=== PATIENT | female | born 1995 | race African-American/Black ===

== ENCOUNTER → 2024-02-06 12:40 | Outpatient (CLI) | payer OTHER, SELFPAY ==
--- NOTE | 2024-02-06 12:43 | DI.CT.S_ITS ---
PROCEDURE: CT LUMBAR SPINE WO CON INDICATIONS: spinal stenosis TECHNIQUE: Noncontrast 3 mm thick sections acquired from the T12 level to the sacrum. Sagittal and coronal reformats were constructed. For radiation dose reduction, the following was used: automated exposure control. COMPARISON: [facility] [place], RF, LUMBAR TRANSFORAMINAL REJI, 01/01/2024, 12:49. [facility] Outside Film, MR, MR LUMBAR SPINE WITHOUT CONTRAST, 09/21/2023, 12:49. [facility] Outside Film, CT, CT LUMBAR SPINE WITHOUT CONTRAST, 11/06/2023, 10:38. FINDINGS: Image quality: Excellent. Bones: There is normal bony alignment. No acute vertebral body compression fractures. No suspicious lytic or blastic bony lesions. No pars defects. T12-L1: Normal appearance. L1-L2: Normal appearance. L2-L3: Normal appearance. L3-L4: Normal appearance. L4-L5: Suggestion of mild broad-based disc bulge with [id number]-[id number] left-sided neural foraminal narrowing and mild right-sided neural foraminal narrowing. No significant central canal stenosis. L5-S1: Diffuse disc bulge is seen with mild central canal stenosis, no significant neural foraminal narrowing. Soft tissues: No retroperitoneal masses or hematomas. Visualized aorta is normal in caliber. IMPRESSION: 1. Mild broad-based disc bulge at L4-5 and L5-S1 levels causing mild to moderate left-sided neural foraminal narrowing and mild right-sided neural foraminal narrowing at L4-5 level. No significant canal stenosis or neural foraminal narrowing is seen in rest of the lumbar spine. 2. No acute vertebral body compression fracture or spondylolisthesis. No gross paraspinous soft tissue abnormalities. Dictated by: Surinder Acevedo M.D. on 02/06/2024 at 20:34 Approved by: Surinder Acevedo M.D. on 02/06/2024 at 20:37
== END ==
PROVIDERS: PCP Nurse Practitioner Family
DX: M48.062 Spinal stenosis, lumbar region with neurogenic claudication (principal); M51.369 Other intervertebral disc degeneration, lumbar region without mention of lumbar back pain or lower extremity pain; M51.379 Other intervertebral disc degeneration, lumbosacral region without mention of lumbar back pain or lower extremity pain
CPT/HCPCS: 72131

== ENCOUNTER 2024-03-02 15:38 | Inpatient (IN) | payer OTHER, SELFPAY ==
[2024-02-19 08:07] VITALS: BMI 33.5
[2024-03-02] VITALS (18 sets, daily range): BP systolic 117–132; BP diastolic 63–86; PULSE 81–101; RESP 10–21; TEMP 36–36.5; O2SAT 9–100; BMI 33.5; BMI 34.7
[2024-03-02] MEDS: SCOPOLAMINE 1 PATCH TOP (10:08)
[2024-03-02] MEDS: LACTATED RINGERS 1,000 ML 42 ML IV (10:08)
[2024-03-02] MEDS: ACETAMINOPHEN 325 MG TABLET 975 MG PO (10:10)
--- NOTE | 2024-03-02 10:12 | PM.PREOP ---
Pre-operative Note Interval Note History & Physical reviewed/Exam performed by Physician: Yes Changes to H&P: No
[2024-03-02] MEDS: CEFAZOLIN 2 GM/100 ML PREMIX 100 ML IV ×2 (10:49→19:06)
--- NOTE | 2024-03-02 11:23 | SUR.OPER ---
Prone on spine table, head in foam head support, padded chest and pelvic supports, gel pad at knees, lower legs supported by pillows; nipples, genitalia and toes free of pressure, arms secured on foam padded arm boards at <90 degrees abduction. Tape over blanket at thigh secured to table.
[2024-03-02] MEDS: BUPIVACAINE 0.25% (PF) 60 ML, EPINEPHrine 0.15 MG INJ (11:35)
[2024-03-02] MEDS: BUPIVACAINE LIPOSOME 266 MG/20 ML VIAL INJ (11:35)
--- NOTE | 2024-03-02 13:03 | DI.RAD.S_ITS ---
PROCEDURE: XR LUMBAR SPINE 2-3V INDICATIONS: L5-S1 TLIF WITH ROBOT TECHNIQUE: 2 intraoperative fluoroscopic views of the lumbar spine were acquired. COMPARISON: None. FINDINGS: Intraoperative fluoroscopic images of lower lumbar spine shows posterior fusion at L5-S1 level with surgical hardware in place. IMPRESSION: Fluoro guidance was provided intraoperatively for L5-S1 TLIF performed by ordering physician. Dictated by: Surinder Acevedo M.D. on 03/02/2024 at 13:47 Approved by: Surinder Acevedo M.D. on 03/02/2024 at 13:48
--- NOTE | 2024-03-02 13:21 | P.OP_ITS ---
Operative Date/Time/Diagnoses Date of procedure: 03/02/24 Time of procedure: 11:00 Pre-op diagnosis: 1. L5 pars defect 2. Lumbar foraminal stenosis Post-op diagnosis: same Procedure & Clinicians Procedure: 1. L5-S1 Postero-lateral and posterior interbody fusion 2. L5-S1 interbody cage placement. 3. L5-S1 decompressive laminectomy with bilateral facetecomies 4. L5-S1 Posterior non-segmental instrumentation 5. [place] of bone marrow from iliac crest 6. Utilization of microsurgical technique and operating microscope 7. Utilization of robotic assisted navigation Same procedure as scheduled: Yes Indications: Patient has been having chronic back pain and worsening lumbar radiculopathy. Patient was found to have L5 pars defect and foraminal stenosis correlating with her symptoms. Patient failed multiple conservative management with worsening pain weakness and numbness in her lower extremity. Patient has been having difficulty performing activity of daily living. After discussing risks benefits of treatment options, patient elected proceed with surgery. Surgeon: Rosalie Hedrick [employer] Worker: Calista Bradford Click Yes if Unassisted: No Anesthesia Type: General Operative Notes Closure Type: primary Specimen(s): none sent Prosthetic devices, grafts, tissues, transplants, or devices: Globus CREO MIS screws, Rise cage Estimated Blood Loss (mL): 50 Blood products transfused: none Procedure in detail: Patient was seen in the preoperative area. Risks and benefits of the surgery was discussed with the patient. Informed consent was obtained from the patient and placed in the chart. Surgical site was marked. Patient was taken to the operative room. General anesthesia was administered. Prophylactic antibiotic was given to the patient less than 30 min before the incision was made. Patient was placed into a prone position on the Jose table. Patient's back was then prepped and draped in the sterile fashion. Time-out was performed at this time. After patient was prepped and draped, patient's PSIS was palpated and marked bilaterally. Small 1 cm incision was made over the PSIS for placement of the reference probes. Two trocar was placed into the PSIS 1 on each side. The reference probe was attached to the trocar of the reference apparatus. At this time the C-arm imaging was used to confirm AP and lateral of L5-S1 vertebrae and merged the C-arm imaging using the [employer] robotic navigation system with the CT of the lumbar spine. After successful merging was completed and confirmed, skin marker was used to yuki out the skin incision using the [employer] robotic arm. Bilateral incision was made at this time. Pre templated trajectory was used and guided using the [employer] robotic navigation system for bilateral L5-S1 pedicle screw placement. This was done by using the robotic arm to guide the high-speed bur to make a cortical entry point. Next a drill was placed also using the robotic arm and guided using the navigation system drilling partially through bilateral L5, S1 pedicles. Next L5-S1 pedicle screws it was pre templated and measured was placed onto the power cat driver and inserted into the pedicles bilaterally. After all 4 screws were placed C-arm imaging was taken of both AP and lateral to confirm the placement. Excellent placement of the screws were confirmed and a matched precisely with the pre planned screw placement using the navigation system. MARs retractor was inserted using Ezuza guidence. [employer] MARS retractors was placed inside the incision and docked onto the L5 lamina. Using microsurgical technique and operating microscope, a L5 laminectomy and L5-S1 facetectomy was performed using a Kerrison rongeur. Patient was found to have L5 pars defect with visible dynamic instability upon inspection of the L5-S1 segment. Patient was found have severe lateral recess and neural foramen stenosis which was fully decompressed after the laminectomy facetectomy. The laminectomy and facetectomy was performed in order to decompress patient's cauda equina as well as the nerve roots exiting at the L5-S1 level. More than 75% of the facets were removed during the process of decompression rendering L5-S1 level grossly unstable and required a fusion procedure at the same time. The disc space at L5-S1 was identified, and a total diskectomy was performed at L5- S1 level. The endplates were decorticated using a rasp and shaver. The total diskectomy and decortication was performed at L5-S1 level in order to to accomplish a L5-S1 fusion. The local bone from the laminectomy and facetectomy was saved for local bone grafting. After the total diskectomy and decortication was completed, Viacel bone graft material was combined with local bone that was harvested earlier. At this time, a separate skin is incision was made over the iliac crest. A Jamshidi needle was inserted into the iliac crest through a separate skin incision. 5 cc of bone marrow aspiration was obtained through the separate skin incision using a Jamshidi needle from the iliac crest. The bone marrow aspiration was combined with local bone and the Viacel bone grafting material. The bone grafting material was placed into the L5-S1 interbody space along with a expandable cage. The cage was expanded to its maximum height using the torque limiting screwdriver. The disc preparation as well as the cage insertion were also performed under navigation guidance. After the cage was placed, AP and lateral C-arm imaging was taken to confirm placement of the cage and excellent position was confirmed. Globus MARS retractor was inserted and docked onto the L5-S1 posterolateral gutter on the right side. Using the power drill, posterior-lateral decortication was performed at L5-S1 level until bleeding cortical bone was identified. The remaining bone grafting material was placed into the L5-S1 posterior lateral gutter he order to accomplish posterolateral fusion at the L5- S1 level. At this time the tulips were attached to the L5-S1 pedicle screw shanks. After measuring the length of the rods, they were inserted into the tulips of the pedicle screws and locked in place using locking caps and torque limiting screwdriver bilaterally. Total 4 caps and 2 titanium rods was used in order to complete the posterior instrumentation construct. After all the hardware was placed, and confirmed with AP and lateral C-arm imaging, the wound was then irrigated with sterile normal saline and packed with Ray-Britney gauze for 3 min to accomplish hemostasis. After the gauze was removed the deep fascia was closed with #1 Vicryl suture. The subcutaneous layer was closed with 2-0 Vicryl. The skin was closed with skin rodger. Patient tolerated the procedure well. There were no complications. Neuro monitoring system was used to monitor patient's neurologic status throughout entire procedure. There was no disturbance of the neural monitoring signals throughout the case. The Operation could not have been safely performed without compromising the technical result or length of the procedure, without the assistance of a skilled social and human services assistant. The social and human services assistant was medically necessary for proper positioning, retraction and manipulation of instruments, proper exposure, jayda gical preparation, and manipulation of tissue. Complications: none Post-operative Condition: stable Disposition: PACU Plan for aftercare: Admit to inpatient hospital
[2024-03-02] MEDS: HYDROMORPHONE 1 MG INJ IV ×2 (14:01→14:13)
[2024-03-02] MEDS: OXYCODONE IR 5 MG TABLET PO ×2 (14:02→20:01)
[2024-03-02] MEDS: ONDANSETRON 4 MG/2 ML INJ IV ×2 (14:02→20:02)
[2024-03-02] MEDS: hydrOXYzine 50 MG/ML INJ 25 MG IM (14:13)
--- NOTE | 2024-03-02 14:41 | SUR.PHASEI ---
1430Pt.c/o severe pain 11/08
[2024-03-02] MEDS: MIDAZOLAM 2 MG/2 ML VIAL 1 MG IV (14:55)
[2024-03-02] MEDS: LORazepam 2 MG/ML INJ IV ×2 (15:01→15:10)
[2024-03-02 15:02] LABS: Allen Test for ABG Passed? Positive; Blood Gas Collection Site Left Radial; HCO3 ABG 23 mmol/L (23-27); Oxygen Saturation ABG 94 % (95-100); PCO2 ABG 44.3 mmHg (35-45); PO2 ABG 75 mmHg (80-100); TCO2 ABG 23 mmol/L (23-27); pH ABG 7.32 (7.35-7.45)
[2024-03-02] MEDS: levETIRAcetam 1,000 MG in SODIUM CHLORIDE 0.9% 100 ML 440 MG IV ×2 (15:02→20:20)
[2024-03-02] MEDS: NALOXONE 0.4 MG/ML VIAL IV (15:23)
--- NOTE | 2024-03-02 15:32 | DI.CT.S_ITS ---
PROCEDURE: CT HEAD/BRAIN WO CON INDICATIONS: seizure s/p spinal surgery TECHNIQUE: Noncontrast 4.5 mm thick angled axial sections acquired from the foramen magnum to the vertex, with coronal and sagittal reformats. For radiation dose reduction, the following was used: automated exposure control, adjustment of mA and/or kV according to patient size. COMPARISON: [facility], CR, XR LUMBAR SPINE 2-3V, 03/02/2024, 11:08. FINDINGS: Image quality: Diagnostic. CSF spaces: Basal cisterns are patent. No extra-axial fluid collections. Ventricles are normal in size and shape. Brain: No midline shift. No intracranial masses or hemorrhage. Lake-white matter interface is normal. Skull and face: Calvarium and visualized facial bones are intact, without suspicious lesions. Sinuses: Visualized sinuses and mastoids are clear. IMPRESSION: Unremarkable noncontrast head CT, without a cause of seizures identified. No acute intracranial hemorrhage is seen. To the limits of this noncontrast study, no findings of intracranial masses or mass effect can be seen. If there is strong clinical suspicion for an acute stroke, please consider a brain MRI for further evaluation, as it is more sensitive (assuming that there is no contraindication to MRI). Dictated by: Harman Avila M.D. on 03/02/2024 at 14:52 Approved by: Harman Avila M.D. on 03/02/2024 at 14:53
[2024-03-02 15:33] LABS: Mean Corpuscular HGB Conc 31.9 % (30-36); Mean Corpuscular Hemoglobin 30.9 PG (26-34); Mean Corpuscular Volume 96.8 fL (80-100); Platelet Count 106 X10^3/uL (150-400); Red Blood Cell Count 1.51 X10^6/uL (4.0-5.2); Red Cell Distribution Width 13.3 % (11.6-14.8)
[2024-03-02 15:35] LABS: Add Manual Diff / Slide Review YES
--- NOTE | 2024-03-02 16:07 | SUR.PHASEI ---
at 1400 pt. crying and stating pain is 9/10 in back. pt transferred to another bed and was drinking ice water. at 1414 pt. had seizure like activity and was unresponsive x [address] open and pt awoke c/o pain and the had periods of seizure like activity and apnea . vital signs remain stable . dr. Valenzuela at bedside and pt cont. to have periods of seizure like activity. dr. Thomason and Dr. Schneider at bedside. pt. medicated. see. mar for specific administration data. see vsfs for specific vitalsign information . labs drawn. report called to ICU. See dr. Valenzuela note . pt. to ct tranferred on monitor with RT, dr. Valenzuela, and rn.
--- NOTE | 2024-03-02 16:15 | PM.HP.1 ---
History of Present Illness History of Present Illness Date Patient Seen: 03/02/24 Time Patient Seen: 16:15 Chief complaint: [place] Intrbody Fus./Laminotomy -Robot Narrative: This is a 28 year old female with PMH of possibly one seizure (though her mother states she has had some seizure like activity multiple times in the past, but never formally diagnosed with seizure), migraine with aura (seeing neurology and on botox for this per mother), who underwent L5-S1 fusion surgery today with Dr. Hedrick of orthopedics. In the PACU, she developed seizure activity. This was witnessed by me. She had initially received 2 mg of midazolam in the PACU before medicine was called for possible seizure activity. When I arrived her head would rock back and to the right, eyes rolled back, and her jaw became very stiff. There was slight extension of her upper extremities as well. This happened once which self abated after about 15 seconds. Then recurred shortly after. She improved / eased after 2 mg of ativan, was given 1g of Keppra IV initially. Had another less prominent episode which again abated after 2 mg of ativan IV a 2nd time. She then became apnic but was more relaxed, improved with narcan. She was transferred to CT which was unremarkable. Labs were diluted (hg 4.7) and are being repeated. She was admitted to the ICU after seizure. Blood gas was non-contributory and blood glucose was unremarkable. Patient able to tell me she is without complaints except for back pain. She denies recent alcohol use, with her last drink being about 2 weeks ago. [facility] Medical History History of COVID-19 HTN (hypertension) Migraine Lumbar pars defect Low back pain Surgical History No history of previous surgery Social History household members: significant other and none Smoking Status: Never smoker alcohol intake: current Meds Home Medications and Allergies Home Medications Medication Instructions Recorded Confirmed Type acetaminophen 500 mg tablet 1,000 mg PO Q6H PRN Pain 02/19/24 02/19/24 History gabapentin 300 mg capsule 300 mg PO BID 02/19/24 02/19/24 History ibuprofen 200 mg tablet 400 mg PO Q6H PRN Pain 02/19/24 02/19/24 History Allergies Allergy/AdvReac Type Severity Reaction Status Date / Time otf Allergy Severe Mouth Verified 03/02/24 09:42 swelling, hives peach Allergy Severe Mouth Verified 03/02/24 09:42 swelling, hives shellfish derived Allergy Severe Throat Verified 03/02/24 09:42 swelling Review of Systems Review of Systems Narrative: All other systems reviewed with the patient and are negative unless otherwise stated. Exam Vital Signs (past 8 hours): - 03/02/24 09:44 03/02/24 13:39 03/02/24 13:45 Temperature 97.5 F L 97.3 F L Pulse Rate 84 101 H 88 Respiratory Rate 12 16 16 Blood Pressure 127/79 132/79 118/70 Pulse Oximetry 98 100 98 Oxygen Delivery Method Room Air Room Air Room Air 03/02/24 13:45 03/02/24 13:54 03/02/24 14:09 Temperature 97.2 F L Pulse Rate 86 93 H 87 Respiratory Rate 16 16 16 Blood Pressure 117/80 126/80 124/77 Pulse Oximetry 98 9 L 99 Oxygen Delivery Method Room Air Room Air Room Air 03/02/24 14:09 Temperature Pulse Rate 93 H Respiratory Rate 16 Blood Pressure 126/86 Pulse Oximetry 98 Oxygen Delivery Method Room Air Oxygen Delivery Method Room Air Narrative Exam Narrative: General:? Patient is well developed and well nourished, in no distress at this time. Slightly lethargic and falls asleep quickly. HEENT:? Normocephalic, atraumatic, extraocular muscles intact, oral pharynx is clear and mucous membranes are dry. No lacterations on her tongue are seen Neck: supple and symmetric, trachea is midline, no cervical adenopathy. Negative for JVD Chest:? Normal AP diameter and contour without kyphoscoliosis, no tachypnea, equal chest rise bilaterally. Lungs:? Shallow respirations but CTA b/l Cardio:?RRR no m/r/g. Abdomen: S NT ND. Musculoskeletal:? Muscle strength and tone are equal within normal limits, no deformity. Extremities: No edema or joint effusions. No cyanosis or clubbing. Skin:? Pale,? Warm to touch,dry and intact without rashes, ulcerations or petechiae.? Neuro:?Moves all extremities, follows commands. Objective Labs 03/02/24 16:15 03/02/24 16:15 Labs: Laboratory Results - last 24 hr 03/02/24 03/02/24 14:58 15:20 WBC 3.0 L RBC 1.51 L Hgb 4.7 L* Hct 14.6 L* MCV 96.8 MCH 30.9 MCHC 31.9 RDW 13.3 Plt Count 106 L Neut % (Auto) Not Reportable Lymph % (Auto) Not Reportable [place] % (Auto) Not Reportable Eos % (Auto) Not Reportable Baso % (Auto) Not Reportable Lymph # (Auto) Not Reportable [place] # (Auto) Not Reportable Baso # (Auto) Not Reportable ABG Sample Site Left radial ABG pH 7.32 L ABG pCO2 44.3 ABG pO2 75 L ABG HCO3 23 ABG Total CO2 23 ABG O2 Saturation 94 L ABG Base Excess -3.0 L Narciso Test Positive Assessment & Plan Assessment & Plan narrative: 1. Seizure - seizure precautions ordered, ativan prn for seizure activity - continue keppra 1g BID for now - call patient's neurologist tomorrow to see if need for ongoing anti-seizure medication - If recurrent seizure consider transfer for neurologist consultation and EEG - likely caused by reduced seizure threshold after anesthesia and spinal surgery. CT head was unremarkable. - patient may be lethargic in post-ictal period. - no obvious evidence of infectious or metabolic etiologies thus far on evaluation. 2. Spinal stenosis s/p lumbar fusion - management per orthopedic service - okay for therapy evaluations tomorrow 3. Chronic low back pain - continue gabapentin - okay for oxycodone. Code: Full, surrogate is patient's mother Marisol - [phone] DVT: SCDs I have utilized all available immediate resources to obtain, update, or review the patient's current medications. Dispo: ICU. Admitted to medicine service, orthopedics consultation appreciated. Will have PT/OT evaluations. Anticipated stay is beyond 2 midnights. Additional history obtained via discussions with anesthesiologist, PACU staff, nursing staff and patient's mother. These discussions contributed to the creation of the above assessment and plan. I have reviewed patient's presenting documentation, labs, and imaging personally. I spent45 minutes providing critical care management this patient. This excludes time spent in performing separately billed procedures. Time-Based Coding :: [TOTAL MINUTES] spent with patient and on the chart (including review of chart, obtaining history, exam, reviewing outside data, placing orders, documenting exam and treatment plan, and counseling patient) on [DATE].
[2024-03-02] MEDS: LACTATED RINGERS 1,000 ML 125 ML IV ×2 (16:28→20:03)
[2024-03-02 16:42] LABS: Hematocrit 14.6 % (36-46); Hemoglobin 4.7 g/dL (12.0-16.0)
[2024-03-02 16:43] LABS: Neutrophils Absolute Manual 2130 /uL (3000-5900); RBC Morphology Normal Morphology; Total Cells Counted 100
[2024-03-02 16:49] LABS: Phosphorous 3.4 mg/dL (2.5-4.5)
[2024-03-02 16:50] LABS: Alanine Aminotransferase 39 IU/L (<35); Albumin 3.8 g/dL (3.5-5.0); Albumin Globulin Ratio 1.2 (1.0-2.8); Alkaline Phosphatase 51 U/L (38-126); Aspartate Aminotransferase 32 IU/L (14-36); BUN Creatinine Ratio 11.8 (6-22); Bilirubin Total 0.8 mg/dL (0.2-1.3); Blood Urea Nitrogen 10 mg/dL (7-17); Calcium 8.6 mg/dL (8.4-10.2); Carbon Dioxide 25 mmol/L (22-32); Chloride 108 mmol/L (98-107); Estimated Glomerular Filt Rate > 60 mL/min (>60); Globulin 3.3 g/dL (1.7-4.1); Glucose 81 mg/dL (70-100); HEMOLYSIS < 15 (0-50); Potassium 3.7 mmol/L (3.4-5.1); Sodium 140 mmol/L (137-145); Total Protein 7.1 g/dL (6.3-8.2)
--- NOTE | 2024-03-02 16:55 | PT-IP ANOTE ---
Pt adm to ICU after back surgery and Hgb is in the 4 range. Hold PT consult today.
[2024-03-02 16:56] LABS: Add Manual Diff / Slide Review NO; Basophils Absolute Auto 0 /uL (0-100); Basophils Percent Auto 0.2 % (0-2); Eosinophils Absolute Auto 100 /uL (0-450); Eosinophils Percent Auto 0.9 % (2-4); INR 1.1 (0.9-1.3); Lymphocytes Absolute Auto 2100 /uL (1100-4500); Lymphocytes Percent Auto 22.4 % (25-40); Mean Corpuscular HGB Conc 32.6 % (30-36); Mean Corpuscular Hemoglobin 29.9 PG (26-34); Mean Corpuscular Volume 91.7 fL (80-100); Monocytes Absolute Auto 600 /uL (0-900); Monocytes Percent Auto 6.4 % (3-14); Neutrophils Absolute Auto 6600 /uL (1500-7000); Neutrophils Percent Auto 70.1 % (50-75); Platelet Count 253 X10^3/uL (150-400); Red Blood Cell Count 4.16 X10^6/uL (4.0-5.2); Red Cell Distribution Width 13.1 % (11.6-14.8); White Blood Cell Count 9.4 X10^3/uL (4.5-11.0)
[2024-03-02 16:57] LABS: Hematocrit 38.1 % (36-46); Hemoglobin 12.4 g/dL (12.0-16.0)
--- NOTE | 2024-03-02 16:57 | OT.IPNOTE ---
Ot eval and treat order received. Chart reviewed and pt admitted to ICU after back sx with H&H 4.7 & 14.6. Will hold OT eval at this time.
[2024-03-02 17:05] LABS: PTT Partial Thromboplastin Tim 35 SECONDS (25.1-36.5)
[2024-03-02 17:06] LABS: Prolactin 75.4 ng/mL (3.0-18.6)
--- NOTE | 2024-03-02 17:18 | P.PN_ITS ---
Subjective Subjective Interval history: I was called to PACU at 14:20 for an unresponsive pt. Pt was postop lumbar surgery. She had complained of back pain and received two doses of 0.5 mg Dilaudid in PACU at appropriate intervals prior to becoming apneic and unresponsive. On arrival, pt was apneic, difficult to mask ventilate, and poorly responsive to jaw thrust. O2 sats were satisfactory, would dip with apnea but bump back to normal when pt responded to stimuli and started breathing. RT was called and responded; she did an ABG, which was normal, and we also checked a glucose level, which was 94. Initially we thought pt was apneic due to opioids received and pinpoint pupils. We treated this with Narcan, small doses to start, but it became clearer with time that she was having seizure-like activity. Her neck would arch back, arms would twitch, and she would become unresponsive and apneic. On occasion, I noted her eyes to roll back, otherwise they would just become glassy and unfocused if pt had them open at the time. Pt did not respond to jaw thrust stimuli at all, but when a mask was placed on her face and air puffed into her face/mouth, she would quickly rouse and tell us I don't want that, take it off. We reviewed all of pt's home meds--gabapentin, Tylenol, and ibuprofen only--and periop meds. Pt had a scopolamine patch on, and I removed that since it can cross the blood-brain barrier. At that point, hospitalist was called, and Dr. Schneider quickly came to PACU. He was able to witness the seizure-like activity and agreed pt was most likely having seizures. Pt would cycle through these seizure-like episodes that would last 10-15 seconds, then resolve quickly, then less than a minute later, another would start. During one of pt's lucid intervals, she responded that she had had only one seizure at the age of 19. Pt received Versed [address] Schneider had witnessed her seizure. Keppra and Ativan 2 mg x 2 doses were then given per his orders. Pt's seizures slowly resolved, but apneic episodes continued. She was treated with another 0.2 mg of Narcan, after having received a total of 0.2 mg in divided doses, and this helped improve respiratory effort. Pt was following commands and DODGE with good strength to Dr. Schneider's testing. Preparations were made to transport pt to ICU. Report was given. Dr. Schneider ordered a head CT to be done on the way to the ICU. I stayed with pt continuously from 14:20 until 15:52 in the ICU, except for a brief trip to the OR to update Dr. Hedrick. After pt was settled in the ICU, I confirmed pt's anesthetic with Caroline pt's [employer]HW[employer] PA[employer]. Pt received TIVA (total IV anesthesia); NO sevoflurane was given, and NO ketamine was given. Pt received Versed 2 mg at the beginning of the case and opioids intraop, fentanyl 100 mcg at the beginning of the case and 100 mcg towards the end. She also received a total of 2 mg of Dilaudid in divided doses. Caroline reported pt was extubated with a RR of 9-10; eyes were open pt was responding to commands but sleepy. Since this was a lumbar spine neuro- monitoring case, I checked with Flavia, the tech, to see if she had noted any seizure-like activity on the neuromonitoring traces. Flavia said she saw nothing unusual intraop, and she reviewed the tracings again and reported she saw nothing resembling seizure activity on her review. Dr. Hedrick contacted pt's grandmother and mother. He learned that pt had had seizure-like activity around the time of the of her 6-year-old child. It is unclear if this is the seizure pt was referring to or a different event. He also learned that pt is under treatment for migraines with an aura of seizure- like activity by her health provider, but she is not on seizure medication. At the time pt was delivered to PACU, she was easily arousable, had not needed physical stimulation to breathe in over ten minutes, and VSS. Dr. Schneider was at bedside and had assumed care. Exam Vital Signs (past 8 hours): - 03/02/24 09:44 03/02/24 13:39 03/02/24 13:44 Temperature 97.5 F L 97.3 F L Pulse Rate 84 101 H 88 Respiratory Rate 12 16 16 Blood Pressure 127/79 132/79 118/70 Pulse Oximetry 98 100 98 Oxygen Delivery Method Room Air Room Air Room Air 03/02/24 13:49 03/02/24 13:54 03/02/24 13:59 Temperature 97.2 F L Pulse Rate 86 93 H 87 Respiratory Rate 16 16 16 Blood Pressure 117/80 126/80 124/77 Pulse Oximetry 98 9 L 99 Oxygen Delivery Method Room Air Room Air Room Air 03/02/24 14:09 03/02/24 14:15 03/02/24 14:20 Temperature Pulse Rate 93 H 94 H 90 Respiratory Rate 16 16 14 Blood Pressure 126/86 124/86 124/84 Pulse Oximetry 98 99 98 Oxygen Delivery Method Room Air Room Air Room Air 03/02/24 14:30 03/02/24 14:40 03/02/24 16:38 Temperature Pulse Rate 84 88 90 Respiratory Rate 16 16 18 Blood Pressure 124/86 126/86 128/85 Pulse Oximetry 100 100 98 Oxygen Delivery Method Room Air Room Air 03/02/24 16:40 Temperature Pulse Rate 88 Respiratory Rate 10 L Blood Pressure Pulse Oximetry Oxygen Delivery Method Oxygen Delivery Method Room Air Objective Labs 03/02/24 16:15 03/02/24 16:15 Labs: Laboratory Results - last 24 hr 03/02/24 03/02/24 03/02/24 14:58 15:20 16:15 WBC 3.0 L 9.4 D RBC 1.51 L 4.16 Hgb 4.7 L* 12.4 Hct 14.6 L* 38.1 MCV 96.8 91.7 D MCH 30.9 29.9 MCHC 31.9 32.6 RDW 13.3 13.1 Plt Count 106 L 253 Neut % (Auto) Not Reportable 70.1 Lymph % (Auto) Not Reportable 22.4 L [place] % (Auto) Not Reportable 6.4 Eos % (Auto) Not Reportable 0.9 L Baso % (Auto) Not Reportable 0.2 Neut # (Auto) 6600 Lymph # (Auto) Not Reportable 2100 [place] # (Auto) Not Reportable 600 Eos # (Auto) 100 Baso # (Auto) Not Reportable 0 Total Counted 100 Seg Neutrophils % 63.0 Band Neutrophils % 8.0 H Lymphocytes % (Manual) 26.0 Monocytes % (Manual) 3.0 Neutrophils # (Manual) 2130 L RBC Morphology Normal morphology PT Cancelled INR APTT ABG Sample Site Left radial ABG pH 7.32 L ABG pCO2 44.3 ABG pO2 75 L ABG HCO3 23 ABG Total CO2 23 ABG O2 Saturation 94 L ABG Base Excess -3.0 L Narciso Test Positive Sodium Potassium Chloride Carbon Dioxide BUN Creatinine Estimated GFR BUN/Creatinine Ratio Glucose Lactate Calcium Phosphorus Magnesium Total Bilirubin AST ALT Alkaline Phosphatase Total Protein Albumin Globulin Albumin/Globulin Ratio Prolactin Blood Type Antibody Screen 03/02/24 03/02/24 16:15 16:15 WBC RBC Hgb Hct MCV MCH MCHC RDW Plt Count Neut % (Auto) Lymph % (Auto) [place] % (Auto) Eos % (Auto) Baso % (Auto) Neut # (Auto) Lymph # (Auto) [place] # (Auto) Eos # (Auto) Baso # (Auto) Total Counted Seg Neutrophils % Band Neutrophils % Lymphocytes % (Manual) Monocytes % (Manual) Neutrophils # (Manual) RBC Morphology PT 12.0 INR Cancelled 1.1 APTT 35 ABG Sample Site ABG pH ABG pCO2 ABG pO2 ABG HCO3 ABG Total CO2 ABG O2 Saturation ABG Base Excess Narciso Test Sodium 140 Potassium 3.7 Chloride 108 H Carbon Dioxide 25 BUN 10 Creatinine 0.85 Estimated GFR > 60 BUN/Creatinine Ratio 11.8 Glucose 81 Lactate 1.0 Calcium 8.6 Phosphorus 3.4 Magnesium 2.0 Total Bilirubin 0.8 AST 32 ALT 39 H Alkaline Phosphatase 51 Total Protein 7.1 Albumin 3.8 Globulin 3.3 Albumin/Globulin Ratio 1.2 Prolactin 75.4 H Blood Type O Positive Antibody Screen Negative ON LICENSE OF [facility] Medical History History of COVID-19 HTN (hypertension) Migraine Lumbar pars defect Low back pain Surgical History No history of previous surgery Social History household members: significant other and none Smoking Status: Never smoker alcohol intake: current Assessment & Plan Time-Based Coding :: [TOTAL MINUTES] spent with patient and on the chart (including review of chart, obtaining history, exam, reviewing outside data, placing orders, documenting exam and treatment plan, and counseling patient) on [DATE].
[2024-03-02] MEDS: ACETAMINOPHEN 325 MG TABLET 650 MG PO ×2 (17:24→23:03)
[2024-03-02] MEDS: IBUPROFEN 400 MG TABLET PO ×2 (17:25→23:02)
[2024-03-02 17:54] LABS: MRSA (Nasal) PCR NOT DETECTED (Not Detect)
[2024-03-02] MEDS: SENNOSIDES 8.6 MG TABLET 17.2 MG PO (21:10)
[2024-03-02] MEDS: DOCUSATE 100 MG CAPSULE PO (21:10)
[2024-03-02] MEDS: GABAPENTIN 300 MG CAPSULE PO (21:10)
[2024-03-02] MEDS: SODIUM CHLORIDE 0.9% FLUSH 10 ML IV (21:11)
[2024-03-03] VITALS: BP 100/55; PULSE 89; RESP 16; TEMP 36.8; O2SAT 95
[2024-03-03] MEDS: ONDANSETRON 4 MG/2 ML INJ IV (02:03)
[2024-03-03] MEDS: CEFAZOLIN 2 GM/100 ML PREMIX 100 ML IV (03:33)
[2024-03-03 04:00] VITALS: BP 103/56; PULSE 85; RESP 16; TEMP 36.2; O2SAT 97
[2024-03-03] MEDS: ACETAMINOPHEN 325 MG TABLET 650 MG PO (06:06)
[2024-03-03] MEDS: IBUPROFEN 400 MG TABLET PO (06:07)
--- NOTE | 2024-03-03 06:45 | PC.NURSE ---
[facility] Note-No seizure activity overnight. Ambulates to BR with SBA. Tylenol, ibuprofen, and 5mg oxycodone given for back pain and headache. Zofran for nausea without emesis. VSS.
--- NOTE | 2024-03-03 07:50 | PM.PNPO.1 ---
Subjective Subjective Date Patient Seen: 03/03/24 Time Patient Seen: 07:50 Interval history: Back pain is [id number]. No fever/ chills. No nausea /vomiting. No seizure activity overnight. Exam Vital Signs (past 8 hours): - 03/03/24 00:00 03/03/24 00:00 03/03/24 00:00 Temperature 98.2 F Pulse Rate 89 Respiratory Rate 16 Blood Pressure 100/55 L Pulse Oximetry 95 Oxygen Delivery Method Room Air Oxygen Flow Rate 0 03/03/24 04:00 Temperature 97.1 F L Pulse Rate 85 Respiratory Rate 16 Blood Pressure 103/56 L Pulse Oximetry 97 Oxygen Delivery Method Oxygen Flow Rate 0 Oxygen Delivery Method Room Air Oxygen Flow Rate 0 Narrative Exam Narrative: Pleasant 28-year-old female resting comfortably in bedside chair in no apparent distress. Neurovascular status is intact bilateral lower extremities. Const General: cooperative and comfortable Nutritional Appearance: average body habitus Orientation: alert Resp Effort & Inspection: normal respiratory effort and able to speak in complete sentences Objective Labs 03/02/24 16:15 03/02/24 16:15 Labs: Laboratory Results - last 24 hr 03/02/24 03/02/24 03/02/24 14:58 15:20 16:00 WBC 3.0 L RBC 1.51 L Hgb 4.7 L* Hct 14.6 L* MCV 96.8 MCH 30.9 MCHC 31.9 RDW 13.3 Plt Count 106 L Neut % (Auto) Not Reportable Lymph % (Auto) Not Reportable [place] % (Auto) Not Reportable Eos % (Auto) Not Reportable Baso % (Auto) Not Reportable Neut # (Auto) Lymph # (Auto) Not Reportable [place] # (Auto) Not Reportable Eos # (Auto) Baso # (Auto) Not Reportable Total Counted 100 Seg Neutrophils % 63.0 Band Neutrophils % 8.0 H Lymphocytes % (Manual) 26.0 Monocytes % (Manual) 3.0 Neutrophils # (Manual) 2130 L RBC Morphology Normal morphology PT INR APTT ABG Sample Site Left radial ABG pH 7.32 L ABG pCO2 44.3 ABG pO2 75 L ABG HCO3 23 ABG Total CO2 23 ABG O2 Saturation 94 L ABG Base Excess -3.0 L Narciso Test Positive Sodium Potassium Chloride Carbon Dioxide BUN Creatinine Estimated GFR BUN/Creatinine Ratio Glucose Lactate Calcium Phosphorus Magnesium Total Bilirubin AST ALT Alkaline Phosphatase Total Protein Albumin Globulin Albumin/Globulin Ratio Prolactin Nasal Screen MRSA (PCR) Not detected Blood Type Antibody Screen 03/02/24 03/02/24 03/02/24 16:15 16:15 16:15 WBC 9.4 D RBC 4.16 Hgb 12.4 Hct 38.1 MCV 91.7 D MCH 29.9 MCHC 32.6 RDW 13.1 Plt Count 253 Neut % (Auto) 70.1 Lymph % (Auto) 22.4 L [place] % (Auto) 6.4 Eos % (Auto) 0.9 L Baso % (Auto) 0.2 Neut # (Auto) 6600 Lymph # (Auto) 2100 [place] # (Auto) 600 Eos # (Auto) 100 Baso # (Auto) 0 Total Counted Seg Neutrophils % Band Neutrophils % Lymphocytes % (Manual) Monocytes % (Manual) Neutrophils # (Manual) RBC Morphology PT Cancelled 12.0 INR Cancelled 1.1 APTT 35 ABG Sample Site ABG pH ABG pCO2 ABG pO2 ABG HCO3 ABG Total CO2 ABG O2 Saturation ABG Base Excess Nraciso Test Sodium 140 Potassium 3.7 Chloride 108 H Carbon Dioxide 25 BUN 10 Creatinine 0.85 Estimated GFR > 60 BUN/Creatinine Ratio 11.8 Glucose 81 Lactate 1.0 Calcium 8.6 Phosphorus 3.4 Magnesium 2.0 Total Bilirubin 0.8 AST 32 ALT 39 H Alkaline Phosphatase 51 Total Protein 7.1 Albumin 3.8 Globulin 3.3 Albumin/Globulin Ratio 1.2 Prolactin 75.4 H Nasal Screen MRSA (PCR) Blood Type O Positive Antibody Screen Negative [facility] Medical History History of COVID-19 HTN (hypertension) Migraine Lumbar pars defect Low back pain Surgical History No history of previous surgery Social History household members: significant other and none Smoking Status: Never smoker alcohol intake: current Assessment & Plan Post-op Postoperative Procedures: Procedures Operation Date: 03/02/24 10:45 Actual Procedure Side Surgeon p L5-S1 TLIF-Robot Rosalie Hedrick MD Postoperative day: 1 Postoperative status: doing well Postoperative plan narrative: Multimodal pain management Mobilize with physical therapy, limit bending, twisting, lifting Hospitalist consultation yesterday March 02, 2024 for seizure activity, seizure precautions ordered Ativan as needed seizure activity. Continue Keppra 1 g b.i.d. for now. Patient to work with physical therapy this morning. Possible discharge home later today. Hospitalist is recommended continuing Keppra and urgent follow up with patient's neurologist.
[2024-03-03 08:30] VITALS: BP 119/67; PULSE 77; RESP 16; TEMP 36.1; O2SAT 99
[2024-03-03] MEDS: DOCUSATE 100 MG CAPSULE PO (08:54)
[2024-03-03] MEDS: GABAPENTIN 300 MG CAPSULE PO (08:54)
[2024-03-03] MEDS: levETIRAcetam 1,000 MG in SODIUM CHLORIDE 0.9% 100 ML 440 MG IV (08:54)
[2024-03-03] MEDS: SODIUM CHLORIDE 0.9% FLUSH 10 ML IV (08:55)
--- NOTE | 2024-03-03 09:40 | OT.IP.EVAL ---
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) Surgery Performed Operation Date: 03/02/24 10:45 Actual Procedures p L5-S1 TLIF-[place] - Rosalie Hedrick MD Past Medical History (Last Reviewed 03/02/24 @ 16:53 by Thad Schneider DO) History of COVID-19 HTN (hypertension) Low back pain Lumbar pars defect Migraine Surgical History (Last Reviewed 03/02/24 @ 16:53 by Thad Schneider DO) No history of previous surgery Occupational Therapy Inpatient Evaluation/Re-Eval M1 PT/OT-IP Prior Functional Status Start: 03/03/24 10:05 Freq: NEEDED Status: Active Protocol: Document 03/03/24 10:05 [facility] (Rec: 03/03/24 10:20 [facility] [id number]) Medical Review Prior Functional Status Medical History Reviewed Yes Communication Indepedent Mobility and Gait Pt able to walk without a device but had pain and numbness down her legs. Activities of Daily Living and IADL's Pt able to do but had pain and difficulty. Prior Functional Level (Other details) Pt states a friend to sty with her for a week. Social History Household Members none Living Arrangements House Number of Floors (Floors) Two Floors Number of Stairs To Enter/Railing? 3 steps with left wall from the garage. 10-12 steps with left rail going up to the bedroom and tub/shower. There is a half bath on the main level. Home Environment Standard Height Toilet,Tub/ Shower M2 OT-IP Current Condition Start: 03/03/24 10:05 Freq: Status: Active Protocol: Document 03/03/24 10:05 [facility] (Rec: 03/03/24 10:20 [facility] [id number]) Occupational Therapy Current Condition Current Condition Evaluation Date 03/03/24 Treatment Diagnosis S/P L5-S1 sx and Seizure Diagnosis Onset Date 03/02/24 Post Operative Precautions Lumbar Precautions Log Roll,No Twisting,Limit Bending,Lifting Restriction of 10 lbs,Gait Belt above Incisional Area M3 OT- IP Subjective and Pain Start: 03/03/24 10:05 Freq: Status: Active Protocol: Document 03/03/24 10:05 [facility] (Rec: 03/03/24 10:20 [facility] [id number]) OT- Subjective Occupational Therapy Visit Type Type Initial Evaluation Visit Start Time 09:00 Visit Stop Time 09:40 Occupational Therapy Visit Comments Patient Comments Pt agreed to get up to do grooming needs at the sink. Patient/Caregiver Goals To go home. OT Pain Assessment Pain When Pain Assessed At Rest Pain Present Pain Present Pain Reported Location Back Intensity 6 Scale Used Numeric (0 - 10) M4 OT- IP ADL's Start: 03/03/24 10:05 Freq: Status: Active Protocol: Document 03/03/24 10:05 [facility] (Rec: 03/03/24 10:20 [facility] [id number]) OT [id number] General Evaluation Self-Feeding Ability Independent OT ADL-Grooming General Evaluation Grooming Ability Standby Assistance Areas Needing Assistance Retrieving/Set-up of Grooming Items Comments OT Grooming Comments Able to do while standing at the sink with FWW. OT ADL-Oral Care General Eval Oral Care Ability Independent,Standby Assistance Comments Oral Care Comments Educated to hinge at her hips or just spit into a cup to best follow her back precautions. OT ADL-Dressing General Eval Lower Body Dressing Ability Standby Assistance,Maximum Assistance Areas Needing Assistance Socks Comments OT Dressing Comments Pt able to practice use ot LB dressing equipment for needs. Pt will benefit from getting LB dressing equipment. OT ADL-Toileting Comments OT Toileting Comments Suggested pt stand to wipe and possibly get BSC and wipes to increase ease. OT ADL-Bathing Comments OT Bathing Comments Pt will benefit from a shower chair and hand held shower spray. Pt educated of covering the dressing from getting wet. M5 OT- IP IADL's Start: 03/03/24 10:05 Freq: Status: Active Protocol: Document 03/03/24 10:05 [facility] (Rec: 03/03/24 10:20 [facility] [id number]) OT-Instrumental Activities of Daily Living Home Safety Awareness Awareness of Need for Assistance at Home Good Awareness Ability to Problem Solve Emergency Able to Problem Solve Situations Medication Management Medication Management No Deficits Identified Money Management Money Management No Deficits Identified Meal Preparation Meal Preparation Comments Pt to have a friend to assist. Floor Molder Floor Molder Comments Pt to have a friend to assist. M6 OT- IP Functional Cognition Start: 03/03/24 10:05 Freq: Status: Active Protocol: Document 03/03/24 10:05 [facility] (Rec: 03/03/24 10:20 [facility] [id number]) Cognitive Factors Limiting Selfcare Function Cognitive Ability Level of Alertness Alert Patient Orientation Name,Age,Birthday,Month,Date, Year,Day of Week,Place, Situation Attention Span Ability Capable of Focused Attention, Capable of Sustained Attention Ability to Follow Commands Able to Follow One Step Commands Memory Description No Deficits Noted Safety Awareness No Deficits Noted Cognitive Comments Cognitive Assessment Comments Pt able to states and follow all her back precautions for ADL and mobility needs. OT- Vision and Hearing OT- Hearing Assessment OT- Hearing Assessment WFL OT- Vision Assessment Visual Acuity WFL Visual Attentiveness WFL Occular Pursuits WFL M7 OT- IP Mobility and Balance Start: 03/03/24 10:05 Freq: Status: Active Protocol: Document 03/03/24 10:05 [facility] (Rec: 03/03/24 10:20 [facility] [id number]) OT- Bed Mobility Assessment Rolling Level of Assistance Standby Assistance Supine to Sit Supine to Sit Assist Standby Assistance Sit to Supine Sit to Supine Assist Standby Assistance Scooting Scooting to Edge of Bed Standby Assistance OT-Transfer Assessment Sit to and From Stand Sit to and from Stand Standby Assistance Transfers Transfer Ability Standby Assistance,Contact Guard Assistance Technique Transfer Destination Bed Transfer Technique Stand Step Pivot Devices Transfer Assistive Devices None,Gait Belt,Front Wheeled Walker Comments Mobility Comments SBA with FWW and pt requesting to get a FWW, orders for FWW requested form physician. Pt CGA without the FWW at this time. Pt feeling a little nauseous BP supine 116/62, sitting 108/64, standing 112/ 61 and back into bed 119/64. OT- Balance Assessment Sitting Balance and Reactions Static Sitting Balance Ability Normal Dynamic Sitting Balance Ability Good Standing Balance and Reactions Static Standing Balance Ability Good Dynamic Standing Balance Ability Fair M8 OT- IP Objective Assessments Start: 03/03/24 10:05 Freq: Status: Active Protocol: Document 03/03/24 10:05 [facility] (Rec: 03/03/24 10:20 [facility] [id number]) OT Gross Range of Motion Upper Extremity Range of Motion ROM Impairments WFL for needs. M9 OT- IP Assessment and Plan Start: 03/03/24 10:05 Freq: Status: Active Protocol: Document 03/03/24 10:05 [facility] (Rec: 03/03/24 10:20 [facility] [id number]) OT Summary Assessment and Plan Potential Rehabilitation Potential Excellent Analytic Complexity at Evaluation Moderate Summary OT Impairments Pain,Balance,Functional Mobility,Dressing,Toileting, Bathing,Toilet Transfers, Shower Transfers Progress Towards Goals Progressing Toward Goals Assessment Summary Pt MOD complexity and main barriers are pain and steps. Pt had a seizure after having spinal sx. Pt doing very well and will benefit from geting ADL equipment and a FWW. Pt to have a friend stay with her prior to going home. Pt to go home with assist when medically stable. Goals Grooming Goal Independent Dressing Goal Independent,Long Handled Shoe Horn,Tea Tree Farmer,Sock Aid Toileting Goal Independent Bathing Goal Standby Assistance Toilet Transfer Goal Independent Shower Transfer Goal Standby Assistance,Tub/Shower Combination,Shower Chair Days to Meet Goals 5 Frequency of Treatment Frequency Of Treatment Once a Day Treatment Plan OT Treatment Plan ADL Training,Functional Mobility,Patient/Family Education,Discharge Planning Discharge Recommendations OT Discharge Recommendations Home with Assistance Home Equipment Needs LB dressing equipment,BSC, FWW , shower chair and HHSP Transportation Needs at Discharge Private Vehicle
[2024-03-03] MEDS: OXYCODONE IR 5 MG TABLET PO (10:02)
--- NOTE | 2024-03-03 10:38 | CM.DANOTE ---
DCP Assessment Note: Pt is a 28yo female, resident of [place], is s/p L5-S1 Fusion with Dr. Hedrick and was admitted for seizure activity exhibited in the PACU. Pt lives in an apartment with her significant other, Eliu Wray. Pt's Primary Care Provider is Elías Corado, ANKUR and insurance is [employer]. Reviewed chart and team rounds for pt's medical status and initial discharge needs. Per OT, pt requesting a FWW prescription before discharge. DCP met w/patient at bedside; introduced self and role. Patient was found in bed, alert and oriented, cooperative with assessment. Pt confirmed living situation and good support in partner who is local while family are in [place]. Pt expressed preference in discharge home when cleared. Pt declines any anticipated need for home health at this time. Pt requesting for FWW prior to discharge to utilize at home. Pt also requesting any documentation to suggest not returning to work until after cleared by Ortho surgeon at follow up, relayed this to hospitalist. Plan: Anticipating discharge home with assistance, follow up with PCP (03/20) and Ortho surgeon (03/19). CM team will follow closely for coordination of discharge plans. [facility] Discharge Planning/Care Management CM Discharge Assessment Start: 03/03/24 10:36 Freq: Status: Active Protocol: Document 03/03/24 10:36 MW (Rec: 03/03/24 10:37 MW [id number]) Discharge Planning Assessment Assigned [employer] Hel[employer] JAQUELINE Tipton DPOA/Assigned Designee Name Eliu Wray, Partner Contact Information [phone] Advance Directives? No History Provided By Patient Prior Living Arrangements Apartment/Condo Household Members significant other Type of transporation used prior to Drives own vehicle admit Independent with ADL's Yes Is patient alert and oriented? Yes Caregiver for Another No DME Already Rented / Owned FWW / Walker Comment Requesting prescription for FWW Barriers to Discharge No Discharge Plan Home Referrals Initiated None needed Whiteboard Updated in Patient Room with Yes name and ext. # of [employer] Comment [phone] Review Status In Process Please Provide Date Initial DC 03/03/24 Assessment Was Performed Next Review Type Continued Stay Review
--- NOTE | 2024-03-03 10:40 | PT.IIE ---
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) Surgery Performed Operation Date: 03/02/24 10:45 Actual Procedures p L5-S1 TLIF-[place] - Rosalie Hedrick MD Surgical History (Last Reviewed 03/02/24 @ 16:53 by Thad Schneider DO) No history of previous surgery Medical History (Last Reviewed 03/02/24 @ 16:53 by Thad Schneider DO) History of COVID-19 HTN (hypertension) Low back pain Lumbar pars defect Migraine Physical Therapy Inpatient Evaluation/Re-Eval M1 PT/OT-IP Prior Functional Status Start: 03/02/24 16:54 Freq: NEEDED Status: Active Protocol: Document 03/03/24 10:40 AB (Rec: 03/03/24 13:25 AB [id number]) Medical Review Prior Functional Status Medical History Reviewed Yes Communication able to make needs known Mobility and Gait pt stated that she was independent with all mobilities and ambulation without AD Social History Household Members friend(s) Living Arrangements House Number of Floors (Floors) Two Floors Number of Stairs To Enter/Railing? 3 steps without rails to enter 12 steps L rail ascending to 2nd level house Home Environment Standard Height Toilet,Tub/ Shower Employment Status Active Duty Additional Social History Comment pt stated that her friend Eliu will be off work to assist her at home M1 PT/OT-IP Prior Functional Status Start: 03/03/24 10:05 Freq: NEEDED Status: Active Protocol: Document 03/03/24 10:05 [facility] (Rec: 03/03/24 10:20 [facility] [id number]) Medical Review Prior Functional Status Medical History Reviewed Yes Communication Indepedendent Mobility and Gait Pt able to walk without a device but had pain and numbness down her legs. Activities of Daily Living and IADL's Pt able to do but had pain and difficulty. Prior Functional Level (Other details) Pt states a friend to sty with her for a week. Social History Household Members none Living Arrangements House Number of Floors (Floors) Two Floors Number of Stairs To Enter/Railing? 3 steps with left wall from the garage. 10-12 steps with left rail going up to the bedroom and tub/shower. There is a half bath on the main level. Home Environment Standard Height Toilet,Tub/ Shower M2 PT-IP Current Condition Start: 03/02/24 16:54 Freq: NEEDED Status: Active Protocol: Document 03/03/24 10:40 AB (Rec: 03/03/24 13:25 AB [id number]) Physical Therapy Current Condition Current Condition Evaluation Date 03/03/24 Treatment Diagnosis s/p L5S1 TLIF; difficulty in walking Onset Date 03/02/24 M3 PT-IP Subjective Start: 03/02/24 16:54 Freq: NEEDED Status: Active Protocol: Document 03/03/24 10:40 AB (Rec: 03/03/24 13:25 AB [id number]) Subjective Physical Therapy Visit Type Type Initial Evaluation Visit Start Time 10:40 Visit Stop Time 11:45 Number of SALES RECEPTIONIST Visits 0 Physical Therapy Visit Comments Patient Comments agreeable to do PT Therapy Pain Assessment Pain When Pain Assessed At Rest Pain Present Pain Present Pain Reported Location Back Intensity 6 Scale Used Numeric (0 - 10) Pain Management Techniques Distraction,Modification of Treatment,Re-positioning, Timing of Activity with Medications M4 PT-IP Mobility and Gait Start: 03/02/24 16:54 Freq: NEEDED Status: Active Protocol: Document 03/03/24 10:40 AB (Rec: 03/03/24 13:25 AB [id number]) PT-Bed Mobility Assessment Rolling Type of Rolling Log Rolling Level of Assist Standby Assistance Supine to Sit Supine to Sit Standby Assistance Sit to Supine Sit to Supine Standby Assistance PT-Transfer Assessment Sit to and From Stand Sit to and from Stand Contact Guard Assistance,1 Person Assistance,Use of Upper Extremities Equipment Transfer Assistive Device Gait Belt,Front Wheeled Walker Orthotic/Prosthetic Devices or Brace: No Transfers Transfer Destination Toilet Transfer Technique ambulated Transfer Ability Level of Assist Standby Assistance,Contact Guard Assistance,1 Person Assistance,Use of Upper Extremities Comments Mobility Comments pt supine in bed and agreeable to do PT. reviewed back precautions and log roll bed mobility. pt completed log roll supine to sit SBA. able to sit on EOB SBA. BP: 101/72 . pt requested to use the toilet. completed sit to stand CGA and cues for techniques. ambulated to the toilet using FWW SBA. pt completed sit to stand from the toilet using grab bar SBA and ambulated to the sink using FWW SBA. able to stand SBA while completing handwashing. pt ambulated into the hallway using FWW ~ 150 ft SBA. pt sat on the w/c . c/o slight dizziness. Checked BL: 99/73. pt rested and stated that she can do stairs. assisted pt towards the stairs . sit to stand from w/c SBA. pt completed up/down steps using L rail ascending SBA and completed again without SBA SBA. pt ambulated back to her room >300 ft using fWW SBA. pt requested to go back in bed . completed sit to supine SBA and cues for techniques. positioned pt in bed. call light and table placed within reach. pt wanting to get FWW from [employer]. Dispensed FWW to pt. pt signed papers. Gait Assessment Gait Gait Assistance Required: Standby Assistance,Contact Guard Assist Distance (Feet) 300 Able to Maintain Weight Bearing Status Yes During Gait Assistive Devices Assistive Device Gait Belt,Front Wheeled Walker Orthotic/Prosthetic Devices or Brace: No Gait Deviations General Gait Pattern Decreased Stride Length, Decreased Feet Clearance Factors Limiting Gait Function Factors Limiting Gait Function Decreased Activity Tolerance, Decreased Strength,Limited Range of Motion,Pain,Poor Balance Stair Climbing Assessment Evaluation Level of Assist On Stairs Standby Assistance Devices Stair Climbing Assistive Devices None,Left Railing Technique/Endurance Stair Climbing Direction Ascend and Descend Stair Climbing Technique Step Over Step Number of Steps Climbed 3 Query Text: Stair Climbing Set # Repetitions (reps) 2 PT-Balance Assessment Sitting Balance and Reactions Static Sitting Balance Ability Normal Dynamic Sitting Balance Ability Good Standing Balance and Reactions Static Standing Balance Ability Good Dynamic Standing Balance Ability Fair Device Used FWW M5 PT-IP Objective Assessments Start: 03/02/24 16:54 Freq: NEEDED Status: Active Protocol: Document 03/03/24 10:40 AB (Rec: 03/03/24 13:25 AB [id number]) Orientation Orientation/Cognition Level of Alertness Alert Orientation Name,Age,Birthday,Month,Date, Year,Day of Week,Place, Situation Language Function Ability No Deficits Noted Safety Awareness Decreased Safety Awareness Memory Description No Deficits Noted Gross Range of Motion Lower Extremity ROM Assessment Within Functional Limits Strength Lower Extremity Strength Assessment Left Impaired Hip 4-/5 Knee 4-/5 Coordination Assessment Gross Coordination Gross Coordination WNL Sensation Assessment Sensation Gross Sensation WNL Muscle Tone Muscle Tone WNL Yes M6 PT-IP Treatment Start: 03/02/24 16:54 Freq: NEEDED Status: Active Protocol: Document 03/03/24 10:40 AB (Rec: 03/03/24 13:25 AB [id number]) Physical Therapy Treatment Education Education Provided Precautions,Weight Bearing Status,Post-Op Packet,Safety Equipment Issued Equipment Type and Company FWW: [employer] 7 PT-IP Assessment and Plan Start: 03/02/24 16:54 Freq: NEEDED Status: Active Protocol: Document 03/03/24 10:40 AB (Rec: 03/03/24 13:25 AB [id number]) PT Summary Assessment and Plan Potential Rehabilitation Potential Good Status of Condition at Evaluation Stable Summary Impairments Pain,ROM,Strength,Balance, Coordination,Sensation,Tone, Cognition,Bed Mobility, Transfers,Gait,Activity Tolerance Assessment Summary pt is a 28 y/o F s/p L5S1 TLIF POD 1. pt has back precautions. pt requiring SBA to CGA with mobility using FWW . pt plans to go home and her friend will assist her at home . pt may go home when medically stable. Goals Bed Mobility Goal Independent Transfer Goal Independent,Front Wheeled Walker Gait Goal Independent,Front Wheel Walker Gait Distance 300 Other Goals improve transfers and ambulation without AD 300 ft mod I up/down 3 steps without AD mod I up/down 12 steps L rail mod I Days to Meet Goals 5 Frequency of Treatment Frequency Of Treatment Twice a Day Treatment Plan Physical Therapy Treatment Plan Bed Mobility Training,Transfer Training,Gait Training, Therapeutic Exercise,Balance Retraining,Post Op Education, Discharge Planning,Hot or Cold Pack,Neuromuscular Re-ed, Coordination Retraining,Manual Therapy Precautions Lumbar Precautions Log Roll,No Twisting,Limit Bending,Lifting Restriction of 10 lbs,Gait Belt above Incisional Area Recommendations To Nursing Amount of Assist Needed 1 Person Assist Discharge Recommendations PT Discharge Recommendations Home with Assistance Transportation Needs at Discharge Private Vehicle
[2024-03-03] MEDS: OXYCODONE IR 10 MG TABLET PO (11:43)
--- NOTE | 2024-03-03 11:44 | P.DS_ITS ---
History of Present Illness History of Present Illness Date Patient Seen: 03/03/24 Time Patient Seen: 11:45 Chief complaint: Back pain Narrative: Patient currently working with physical therapy walking down the [facility]esus. Physical therapy feels that she is ready for discharge home. No new complaints since I saw her earlier this morning. Discharge Providers Provider Date of admission: 03/02/24 15:38 Discharge Date: 03/03/24 Primary care physician: JIMBO Washburn Consults: 03/02/24 15:55 Consult to Occupational Therapy Evaluate & Treat Comment: Physician Instructions: Evaluate and treat Consult to Physical Therapy Evaluate & Treat Comment: Physician Instructions: Evaluate and Treat 03/03/24 11:20 Consult to Home Health Routine Comment: Reason For Exam: FWW for home use Discharge provider: Darrion Goldberg PA-C Summary Hospital Course Discharge Diagnosis: 1. L5 pars defect 2. Lumbar foraminal stenosis 3. Seizure Hospital Course: 1. L5-S1 Postero-lateral and posterior interbody fusion 2. L5-S1 interbody cage placement. 3. L5-S1 decompressive laminectomy with bilateral facetecomies 4. L5-S1 Posterior non-segmental instrumentation 5. [place] of bone marrow from iliac crest 6. Utilization of microsurgical technique and operating microscope 7. Utilization of robotic assisted navigation Same procedure as scheduled: Yes Indications: Patient has been having chronic back pain and worsening lumbar radiculopathy. Patient was found to have L5 pars defect and foraminal stenosis correlating with her symptoms. Patient failed multiple conservative management with worsening pain weakness and numbness in her lower extremity. Patient has been having difficulty performing activity of daily living. After discussing risks benefits of treatment options, patient elected proceed with surgery. Surgeon: Rosalie Hedrick Structural Steel Detailer: Calista Bradford Click Yes if Unassisted: No Anesthesia Type: General Patient admitted to the hospital for L5-S1 fusion March 02, 2024. Patient consented to the same. Patient underwent procedure March 02, 2024. Hospitalist consultation requested due to seizure activity. Patient was treated with Keppra and had no new seizures overnight. Patient does see a neurologist in [place]. Patient was able to make a follow up appointment with her neurologist for March 05, 2024. Patient's mobilize with physical therapy. Patient has been able to urinate on her own. Patient will be on multimodal pain management. Limit bending, twisting, lifting. Patient will follow up with her neurologist as scheduled on March 05, 2024. In discussion with hospitalist we will discontinue Keppra and she will continue her Topiramate 50 mg b.i.d.. Hospitalist felt she was okay to discharge today after discussion with patient's neurologist Dr. Richard. Patient will be discharged today in stable condition. Status at Discharge Functional status at discharge: uses cane/walker Overall status at discharge: patient is progressing back to baseline Exam Vital Signs (past 8 hours): - 03/03/24 04:00 Temperature 97.1 F L Pulse Rate 85 Respiratory Rate 16 Blood Pressure 103/56 L Pulse Oximetry 97 Oxygen Flow Rate 0 Oxygen Delivery Method Room Air Oxygen Flow Rate 0 Narrative Exam Narrative: see progress note Objective Labs 03/02/24 16:15 03/02/24 16:15 Labs: Laboratory Results - last 24 hr 03/02/24 03/02/24 03/02/24 14:58 15:20 16:00 WBC 3.0 L RBC 1.51 L Hgb 4.7 L* Hct 14.6 L* MCV 96.8 MCH 30.9 MCHC 31.9 RDW 13.3 Plt Count 106 L Neut % (Auto) Not Reportable Lymph % (Auto) Not Reportable [place] % (Auto) Not Reportable Eos % (Auto) Not Reportable Baso % (Auto) Not Reportable Neut # (Auto) Lymph # (Auto) Not Reportable [place] # (Auto) Not Reportable Eos # (Auto) Baso # (Auto) Not Reportable Total Counted 100 Seg Neutrophils % 63.0 Band Neutrophils % 8.0 H Lymphocytes % (Manual) 26.0 Monocytes % (Manual) 3.0 Neutrophils # (Manual) 2130 L RBC Morphology Normal morphology PT INR APTT ABG Sample Site Left radial ABG pH 7.32 L ABG pCO2 44.3 ABG pO2 75 L ABG HCO3 23 ABG Total CO2 23 ABG O2 Saturation 94 L ABG Base Excess -3.0 L Narciso Test Positive Sodium Potassium Chloride Carbon Dioxide BUN Creatinine Estimated GFR BUN/Creatinine Ratio Glucose Lactate Calcium Phosphorus Magnesium Total Bilirubin AST ALT Alkaline Phosphatase Total Protein Albumin Globulin Albumin/Globulin Ratio Prolactin Nasal Screen MRSA (PCR) Not detected Blood Type Antibody Screen 03/02/24 03/02/24 03/02/24 16:15 16:15 16:15 WBC 9.4 D RBC 4.16 Hgb 12.4 Hct 38.1 MCV 91.7 D MCH 29.9 MCHC 32.6 RDW 13.1 Plt Count 253 Neut % (Auto) 70.1 Lymph % (Auto) 22.4 L [place] % (Auto) 6.4 Eos % (Auto) 0.9 L Baso % (Auto) 0.2 Neut # (Auto) 6600 Lymph # (Auto) 2100 [place] # (Auto) 600 Eos # (Auto) 100 Baso # (Auto) 0 Total Counted Seg Neutrophils % Band Neutrophils % Lymphocytes % (Manual) Monocytes % (Manual) Neutrophils # (Manual) RBC Morphology PT Cancelled 12.0 INR Cancelled 1.1 APTT 35 ABG Sample Site ABG pH ABG pCO2 ABG pO2 ABG HCO3 ABG Total CO2 ABG O2 Saturation ABG Base Excess Narciso Test Sodium 140 Potassium 3.7 Chloride 108 H Carbon Dioxide 25 BUN 10 Creatinine 0.85 Estimated GFR > 60 BUN/Creatinine Ratio 11.8 Glucose 81 Lactate 1.0 Calcium 8.6 Phosphorus 3.4 Magnesium 2.0 Total Bilirubin 0.8 AST 32 ALT 39 H Alkaline Phosphatase 51 Total Protein 7.1 Albumin 3.8 Globulin 3.3 Albumin/Globulin Ratio 1.2 Prolactin 75.4 H Nasal Screen MRSA (PCR) Blood Type O Positive Antibody Screen Negative [facility] Medical History History of COVID-19 HTN (hypertension) Migraine Lumbar pars defect Low back pain Surgical History No history of previous surgery Social History household members: friend(s) Smoking Status: Never smoker alcohol intake: current Discharge Assessment & Plan Assessment and Plan Assessment: patient progressing as expected Plan of Treatment: limit bending, twisting, lifting multimodal pain management take topiramate 50 mg b.i.d. patient has scheduled follow-up appointment with her neurologist, Dr. Richard, March 05, 2024 follow up outpatient orthopedic clinic in 2 weeks as scheduled. Discharge Plan Discharge Plan Patient Disposition: Home Nursing Discharge Comment: Keep follow up appt with neurologist Discharge orders & Medications Prescriptions: New acetaminophen 325 mg Tablet 650 mg PO Q6H PRN (Reason: Fever/Mild Pain (1-3)) Qty: 60 0RF polyethylene glycol 3350 17 gram Powder In Packet 17 gm PO DAILY PRN (Reason: Constipation) Qty: 30 0RF oxycodone 5 mg Tablet 5 mg PO Q3H PRN (Reason: Pain, Moderate (4-6)) Qty: 30 0RF Continued gabapentin 300 mg Capsule 300 mg PO BID topiramate 50 mg Tablet 50 mg PO BID Discontinued acetaminophen 500 mg Tablet 1,000 mg PO Q6H PRN (Reason: Pain) ibuprofen 200 mg Tablet 400 mg PO Q6H PRN (Reason: Pain) Follow up/Referrals: Elías Corado ARNP [Primary Care Provider] - Jesus Richard MD [Non-Staff] - (Has appt. for 03/05/24) Rosalie Hedrick MD [Physician] - 03/19/24 11:10 am Diet/Activity/Treatments Diet: Diet as Tolerated Activity: No deep bending or twisting at the waist. No lifting more than 10 pounds. Other treatments: No work until after 2 week orthopedic post op appt. Skin/Wound/Dressing Care Report to your healthcare provider any signs of infection, such as:: chills, fever, night sweats, unusual drainage and unusual redness Dressing: May shower. Keep dressings as dry as possible. If dressing becomes wet or dirty, remove and replace with clean, dry gauze. No bathing or otherwise soaking incisions. Do not apply any creams, lotions, or ointments to incisions. Visit Report/Discharge Packet Instructions: DI for Prescription Opioid Use, DI for Transforaminal Lumbar Interbody Fusion Stand Alone Forms: Patient Portal/API, Stroke Signs & Symptoms, Surgery Discharge Discharge Data Primary Care Provider: Elías Corado
--- NOTE | 2024-03-03 12:42 | PM.PN.1 ---
Subjective Subjective Interval history: No further seizure activity, patient doing well. Called and discussed with patient's neurologist Dr. Richard today. Recommended continuing topiramate at 50 mg BID, and he will see her later this week for possible EEG. Exam Vital Signs (past 8 hours): - 03/03/24 08:30 Temperature 97.0 F L Pulse Rate 77 Respiratory Rate 16 Blood Pressure 119/67 Pulse Oximetry 99 Oxygen Flow Rate 0 Oxygen Delivery Method Room Air Oxygen Flow Rate 0 Narrative Exam Narrative: General:? Patient is well developed and well nourished, in no distress at this time. Musculoskeletal:? Muscle strength and tone are equal within normal limits, no deformity. Extremities: No edema or joint effusions. No cyanosis or clubbing. Objective Labs 03/02/24 16:15 03/02/24 16:15 Labs: Laboratory Results - last 24 hr 03/02/24 03/02/24 03/02/24 14:58 15:20 16:00 WBC 3.0 L RBC 1.51 L Hgb 4.7 L* Hct 14.6 L* MCV 96.8 MCH 30.9 MCHC 31.9 RDW 13.3 Plt Count 106 L Neut % (Auto) Not Reportable Lymph % (Auto) Not Reportable [place] % (Auto) Not Reportable Eos % (Auto) Not Reportable Baso % (Auto) Not Reportable Neut # (Auto) Lymph # (Auto) Not Reportable [place] # (Auto) Not Reportable Eos # (Auto) Baso # (Auto) Not Reportable Total Counted 100 Seg Neutrophils % 63.0 Band Neutrophils % 8.0 H Lymphocytes % (Manual) 26.0 Monocytes % (Manual) 3.0 Neutrophils # (Manual) 2130 L RBC Morphology Normal morphology PT INR APTT ABG Sample Site Left radial ABG pH 7.32 L ABG pCO2 44.3 ABG pO2 75 L ABG HCO3 23 ABG Total CO2 23 ABG O2 Saturation 94 L ABG Base Excess -3.0 L Narciso Test Positive Sodium Potassium Chloride Carbon Dioxide BUN Creatinine Estimated GFR BUN/Creatinine Ratio Glucose Lactate Calcium Phosphorus Magnesium Total Bilirubin AST ALT Alkaline Phosphatase Total Protein Albumin Globulin Albumin/Globulin Ratio Prolactin Nasal Screen MRSA (PCR) Not detected Blood Type Antibody Screen 03/02/24 03/02/24 03/02/24 16:15 16:15 16:15 WBC 9.4 D RBC 4.16 Hgb 12.4 Hct 38.1 MCV 91.7 D MCH 29.9 MCHC 32.6 RDW 13.1 Plt Count 253 Neut % (Auto) 70.1 Lymph % (Auto) 22.4 L [place] % (Auto) 6.4 Eos % (Auto) 0.9 L Baso % (Auto) 0.2 Neut # (Auto) 6600 Lymph # (Auto) 2100 [place] # (Auto) 600 Eos # (Auto) 100 Baso # (Auto) 0 Total Counted Seg Neutrophils % Band Neutrophils % Lymphocytes % (Manual) Monocytes % (Manual) Neutrophils # (Manual) RBC Morphology PT Cancelled 12.0 INR Cancelled 1.1 APTT 35 ABG Sample Site ABG pH ABG pCO2 ABG pO2 ABG HCO3 ABG Total CO2 ABG O2 Saturation ABG Base Excess Narciso Test Sodium 140 Potassium 3.7 Chloride 108 H Carbon Dioxide 25 BUN 10 Creatinine 0.85 Estimated GFR > 60 BUN/Creatinine Ratio 11.8 Glucose 81 Lactate 1.0 Calcium 8.6 Phosphorus 3.4 Magnesium 2.0 Total Bilirubin 0.8 AST 32 ALT 39 H Alkaline Phosphatase 51 Total Protein 7.1 Albumin 3.8 Globulin 3.3 Albumin/Globulin Ratio 1.2 Prolactin 75.4 H Nasal Screen MRSA (PCR) Blood Type O Positive Antibody Screen Negative [facility] Medical History History of COVID-19 HTN (hypertension) Migraine Lumbar pars defect Low back pain Surgical History No history of previous surgery Social History household members: significant other Smoking Status: Never smoker alcohol intake: current Assessment & Plan Assessment & Plan narrative: 1. Seizure - discussed with patient's neurologist Dr. Richard, will see patient later this week for follow up. Given clinical scenario discussion with her neurologist it is reasonable to continue patient's topiramate at 50 mg BID which she had stopped taking per PCP advice due to initiation of gabapentin. It is okay to continue both currently. - likely caused by reduced seizure threshold after anesthesia and spinal surgery. CT head was unremarkable. - no obvious evidence of infectious or metabolic etiologies thus far on evaluation. - okay to discharge today. 2. Spinal stenosis s/p lumbar fusion - management per orthopedic service 3. Chronic low back pain - continue gabapentin - okay for oxycodone. Code: Full, surrogate is patient's mother Marisol - [phone] Dispo: okay for discharge home. Patient discharged with orthopedic team, discussed with them today along with patient's neurologist as noted above. Changed to medicine consultation with orthopedic primary once no recurrent seizure activity. Time-Based Coding :: [TOTAL MINUTES] spent with patient and on the chart (including review of chart, obtaining history, exam, reviewing outside data, placing orders, documenting exam and treatment plan, and counseling patient) on [DATE].
--- NOTE | 2024-03-03 15:34 | PC.NURSE ---
Discharge Note Patient A&O, VSS, RA. No complaints of pain discomfort. Discharge packet reviewed with patient, all questions concerns addressed. PIV discontinued. Patient able to dress self and pack all belongings. Patient taken down via wheelchair to POV.
== END 2024-03-03 14:00 | disposition home or self-care (01) | DRG 402 ==
LOC: ICU 15:38 → OR 03-03 09:13 → ICU 03-03 09:13
PROVIDERS: Student in an Organized Health Care Education/Training Program; Admitting Provider Internal Medicine; PCP Nurse Practitioner Family; Referring Provider Orthopaedic Surgery Orthopaedic Surgery of the Spine; Visit Provider Orthopaedic Surgery Orthopaedic Surgery of the Spine
PROC: 0SG30AJ Fusion of Lumbosacral Joint with Interbody Fusion Device, Posterior Approach, Anterior Column, Open Approach (ICD-10-PCS; principal; 2024-03-02 10:45)
DX: M43.07 Spondylolysis, lumbosacral region (principal); M48.061 Spinal stenosis, lumbar region without neurogenic claudication; R56.9 Unspecified convulsions; M54.16 Radiculopathy, lumbar region; G43.909 Migraine, unspecified, not intractable, without status migrainosus
CPT/HCPCS: 36415; 36600; 70450; 72100; 76000; 80053; 82805; 83605; 83735; 84100; 84146; 85007; 85025; 85610; 85730; 86850; 86900; 86901; 87797; 97116; 97161; 97165; 97530; 97535; C1713; C1821; C9290; J0171; J0330; J0690; J1171; J1953; J2060; J2250; J2310; J2405; J2704; J3010; J3410

== ENCOUNTER 2024-06-01 07:39 | Emergency (ER) | payer OTHER, SELFPAY ==
[2024-03-02 16:00] VITALS: BMI 34.7
[2024-06-01 07:45] VITALS: BP 143/85; PULSE 90; RESP 17; TEMP 36.6; O2SAT 97; BMI 34.2
[2024-06-01 07:50] VITALS: O2SAT 97
[2024-06-01 08:00] VITALS: PULSE 78; O2SAT 97
--- NOTE | 2024-06-01 08:08 | ED_ITS ---
HPI - Female Genitourinary General Chief complaint: Urogenital-Female Stated complaint: poss uti Time Seen by Provider: 06/01/24 07:53 Source: patient Mode of arrival: Ambulatory History of Present Illness HPI Narrative: Patient states feels like another UTI starting yesterday. Urinary frequency urgency and dysuria. No nausea vomiting fever chills. No back pain. Patient has had many UTIs in the past. Related Data Home Medications Medication Instructions Recorded Confirmed gabapentin 300 mg capsule 300 mg PO BID 02/19/24 02/19/24 topiramate 50 mg tablet 50 mg PO BID 03/03/24 03/03/24 Previous Rx's Medication Instructions Recorded acetaminophen 325 mg tablet 650 mg (2 x 325 mg) PO Q6H PRN 03/03/24 Fever/Mild Pain (1-3) #60 tabs oxycodone 5 mg tablet 5 mg PO Q3H PRN Pain, Moderate 03/03/24 (4-6) #30 tabs polyethylene glycol 3350 17 gram 17 gm PO DAILY PRN Constipation 03/03/24 oral powder packet #30 ea nitrofurantoin 100 mg PO Q12H 5 days #10 caps 06/01/24 monohydrate/macrocrystals 100 mg capsule (Macrobid) phenazopyridine 100 mg tablet 100 mg PO TID PRN pain 6 doses #6 06/01/24 (Pyridium) tabs Allergies Allergy/AdvReac Type Severity Reaction Status Date / Time otf Allergy Severe Mouth Verified 06/01/24 08:03 swelling, hives peach Allergy Severe Mouth Verified 06/01/24 08:03 swelling, hives shellfish derived Allergy Severe Throat Verified 06/01/24 08:03 swelling Review of Systems Review of Systems Narrative: GENERAL: Negative chills, fatigue, malaise, fever, sweats. HEENT: Negative sinus pain, ear pain, sore throat RESPIRATORY: Negative dyspnea, cough CARDIOVASCULAR: Negative chest pain, palpitations GASTROINTESTINAL: Negative nausea, vomiting, abdominal pain : Positive dysuria, frequency, negative hematuria MUSCULOSKELETAL: Negative muscle or bony pain SKIN: Negative rash, skin lesions NEUROLOGIC: Negative weakness, numbness ROS Unobtainable: All systems reviewed & are unremarkable except as noted in HPI and below Patient History Medical History History of COVID-19 HTN (hypertension) Migraine Lumbar pars defect Low back pain Surgical History No history of previous surgery Exam Narrative Exam Narrative: GENERAL: in no distress, not toxic not dyspneic HEAD: Normocephalic. EYES: Pupils equal round ENT: Mucous membranes moist. NECK: Trachea midline. CARDIOVASCULAR: Regular rate and rhythm RESPIRATORY: Clear to auscultation. Breath sounds equal bilaterally. No wheezes, rales, or rhonchi. GASTROINTESTINAL: Abdomen soft, non-tender, no peritoneal signs no guarding or rebound. No suprapubic tenderness. No CVA tenderness. Bowel sounds are presen t. EXTREMITIES: No gross deformities. BACK: No flank tenderness. NEURO: AOx4. Clear speech SKIN: Warm and dry PSYCH: Not anxious, is cooperative Initial Vital Signs Initial Vital Signs: Vital Signs Temperature 98 F 06/01/24 07:45 Pulse Rate 90 06/01/24 07:45 Respiratory Rate 17 06/01/24 07:45 Blood Pressure 143/85 H 06/01/24 07:45 Pulse Oximetry 97 06/01/24 07:45 Oxygen Delivery Method Room Air 06/01/24 07:45 Course Orders Ordered: ED Orders 06/01/24 07:45 Urine Culture Stat Urine Microscopic Stat Discontinued Medications Nitrofurantoin Macrocrystals (Nitrofurantoin Er 100 Mg Capsule) 100 mg PO NOW ONE Stop: 06/01/24 08:16 Last Admin: 06/01/24 08:18 Dose: 100 mg Phenazopyridine HCl (Phenazopyridine 100 Mg Tablet) 200 mg PO NOW ONE Stop: 06/01/24 08:16 Last Admin: 06/01/24 08:18 Dose: 200 mg Vital Signs Vital signs: Vital Signs - 8 hr 06/01/24 07:45 06/01/24 07:50 06/01/24 08:00 Temperature 98 F Pulse Rate 90 78 Respiratory Rate 17 Blood Pressure 143/85 H Pulse Oximetry 97 97 97 Oxygen Delivery Method Room Air 06/01/24 08:18 06/01/24 08:18 Temperature Pulse Rate 86 Respiratory Rate Blood Pressure 129/77 Pulse Oximetry 98 Oxygen Delivery Method MDM - Female Genitourinary Lab Data Labs: Lab Results 06/01/24 Range/Units 07:45 Urine RBC 1-5/hpf (0-5/HPF) Urine WBC 10-30/hpf H (0-5/HPF) Ur Squamous Epith Cells None seen (0-5/HPF) Urine Bacteria None seen (None) Ur Culture Indicated? Specimen cultured Vol Urine Centrifuged 10ml (spun) Point of Care Testing Test Results Negative Urine Dip Bedside Urine Glucose Negative Bedside Urine Bilirubin - Negative Bedside Urine Ketone - Negative Urine Specific [place] 1.015 Bedside Urine Occult Blood ++ Bedside Urine pH 6.0 Bedside Urine Protein - Negative Bedside Urine Urobilinogen - Negative Bedside Urine Nitrite - Negative Bedside Urine Leukocytes +++ 500 Esterase [facility] Narrative Medical decision making narrative: Patient states feels like another UTI starting yesterday. Urinary frequency urgency and dysuria. No nausea vomiting fever chills. No back pain. Patient has had many UTIs in the past. After history and exam, exam is reassuring. No blood work or imaging indicated. Urinalysis will be obtained. test as well. [facility] Medical records reviewed: No recent visit for this complaint Differential considered: Includes but not limited to UTI cystitis kidney stone Lab Test results independently reviewed as above. Pertinent findings: Urinalysis positive leukocyte esterase, negative Consultations: None indicated at this time Treatments: Macrobid Pyridium Re-evaluations: 8:20 a.m.. Reviewed results with patient agrees with treatment plan antibiotics Pyridium work note and prescription. Return precautions reviewed. She desires discharge home. Discussion: Appropriate for discharge home exam is reassuring. No blurry or imaging indicated. Return precautions reviewed with her. She desires discharge home. Diagnosis: Acute UTI Discharge Plan Departure Patient Disposition: Home Clinical Impression: Urinary tract infection Qualifiers: Urinary tract infection type: site unspecified Hematuria presence: with hematuria Qualified Code(s): N39.0 - Urinary tract infection, site not specified Instructions: DI for Urinary Tract Infection (UTI) Activity Restrictions/Additional Instructions: You are being treated for urinary tract infection. Antibiotics have been started today. Prescription has been sent to your pharmacy to continue. Work note has been provided for you. Please see your family doctor within a week for re-evaluation. Return if worse if any questions or concerns Prescriptions: New phenazopyridine [Pyridium] 100 mg tablet 100 mg PO TID PRN (Reason: pain) Qty: 6 0RF nitrofurantoin monohyd/m-cryst [Macrobid] 100 mg capsule 100 mg PO Q12H 5 Days Qty: 10 0RF Rx Instructions: must administer with a meal/food No Action gabapentin 300 mg Capsule 300 mg PO BID topiramate 50 mg Tablet 50 mg PO BID acetaminophen 325 mg Tablet 650 mg PO Q6H PRN (Reason: Fever/Mild Pain (1-3)) Qty: 60 0RF polyethylene glycol 3350 17 gram Powder In Packet 17 gm PO DAILY PRN (Reason: Constipation) Qty: 30 0RF oxycodone 5 mg Tablet 5 mg PO Q3H PRN (Reason: Pain, Moderate (4-6)) Qty: 30 0RF Referrals: Elías Corado ARNP [Primary Care Provider] - Stand Alone Forms: Patient Portal/API/Survey, Work Release Note
[2024-06-01 08:12] LABS: Urine Volume 10mL (spun)
[2024-06-01 08:18] VITALS: BP 129/77; PULSE 86; O2SAT 98
[2024-06-01 08:18] LABS: Bacteria Urine None Seen; Culture Indicated Urine Specimen Cultured; RBC Urine 1-5/HPF (0-5/HPF); Squamous Epithelial Cell Urine None Seen (0-5/HPF); WBC Urine 10-30/HPF (0-5/HPF)
[2024-06-01] MEDS: NITROFURANTOIN ER 100 MG CAPSULE PO (08:18)
[2024-06-01] MEDS: PHENAZOPYRIDINE 100 MG TABLET 200 MG PO (08:18)
== END 2024-06-01 08:37 | disposition home or self-care (01) ==
PROVIDERS: Emergency Provider Emergency Medicine; PCP Nurse Practitioner Family
DX: N39.0 Urinary tract infection, site not specified (principal)
CPT/HCPCS: 81003; 81015; 81025; 87086; 99283

== ENCOUNTER 2024-07-06 10:01 | Emergency (ER) | payer OTHER, SELFPAY ==
[2024-03-02 16:00] VITALS: BMI 34.7
[2024-07-06 10:05] VITALS: BP 140/81; PULSE 87; RESP 16; TEMP 36.6; O2SAT 100; BMI 34.4
--- NOTE | 2024-07-06 10:43 | ED.BACK ---
HPI - Back Pain/Injury General Chief Complaint: Back Pain/Injury Stated Complaint: Low back pain/radiating down right leg Time Seen by Provider: 07/06/24 10:08 History of Present Illness HPI Narrative: 28-year-old female with history of lumbar back surgery done by Dr. Acevedo here at [facility] March 2024, had follow up appointment, was doing well, now with recent 2 or 3 weeks increasing low back pain without any new injury. Able to ambulate. No incontinence of urine or stool symptoms. No fevers or chills. No new activities, falls, injuries recalled. Had x-ray done as an outpatient at [facility] 2 weeks ago, reassuring results with hardware noted to be intact. She has been taking ibuprofen at 800 mg doses. She would not like how she felt on previous oxycodone. She would not feel that her previous cyclobenzaprine/Flexeril muscle relaxant was helpful. Related Data Home Medications Medication Instructions Recorded Confirmed gabapentin 300 mg capsule 300 mg PO BID 02/19/24 02/19/24 topiramate 50 mg tablet 50 mg PO BID 03/03/24 03/03/24 Previous Rx's Medication Instructions Recorded acetaminophen 325 mg tablet 650 mg (2 x 325 mg) PO Q6H PRN 03/03/24 Fever/Mild Pain (1-3) #60 tabs oxycodone 5 mg tablet 5 mg PO Q3H PRN Pain, Moderate 03/03/24 (4-6) #30 tabs polyethylene glycol 3350 17 gram 17 gm PO DAILY PRN Constipation 03/03/24 oral powder packet #30 ea phenazopyridine 100 mg tablet 100 mg PO TID PRN pain 6 doses #6 06/01/24 (Pyridium) tabs methocarbamol 500 mg tablet 500 mg PO TID 7 days #21 tabs 07/06/24 tramadol 50 mg tablet 50 mg PO TID PRN pain #14 tabs 07/06/24 Allergies Allergy/AdvReac Type Severity Reaction Status Date / Time otf Allergy Severe Mouth Verified 06/01/24 08:03 swelling, hives peach Allergy Severe Mouth Verified 06/01/24 08:03 swelling, hives shellfish derived Allergy Severe Throat Verified 06/01/24 08:03 swelling Patient History Medical History History of COVID-19 HTN (hypertension) Migraine Lumbar pars defect Low back pain Surgical History No history of previous surgery Social History household members: friend(s) alcohol intake: current alcohol intake frequency: holidays/special occasions only Exam Narrative Exam Narrative: GENERAL: Well-developed patient, in mild distress. HEAD: Atraumatic. Normocephalic. EYES: Pupils equal round and reactive. Extraocular motions intact. No scleral icterus. No injection or drainage. ENT: Nose without bleeding, purulent drainage. Throat without erythema, tonsillar hypertrophy or exudate. Airway patent. NECK: Trachea midline. Non tender CARDIOVASCULAR: Regular rate and rhythm without murmurs, gallops, or rubs. RESPIRATORY: Clear to auscultation. Breath sounds equal bilaterally. No wheezes, rales, or rhonchi. GASTROINTESTINAL: Abdomen soft, non-tender, nondistended. EXTREMITIES: No edema or joint tenderness. BACK: Nontender without deformity or crepitance. No flank tenderness. Well-healed low lumbar paraspinal vertical scars, without redness or swelling or warmth. No midline spinal tenderness mid-low back. NEURO: AOx3. Motor functions grossly nonfocal SKIN: No rash or erythema of visible areas Initial Vital Signs Initial Vital Signs: Vital Signs Temperature 97.9 F 07/06/24 10:05 Pulse Rate 87 07/06/24 10:05 Respiratory Rate 16 07/06/24 10:05 Blood Pressure 140/81 07/06/24 10:05 Pulse Oximetry 100 07/06/24 10:05 Oxygen Delivery Method Room Air 07/06/24 10:05 Course Orders Ordered: Discontinued Medications Methocarbamol (Methocarbamol 500 Mg Tablet) 750 mg PO NOW ONE Stop: 07/06/24 11:01 Last Admin: 07/06/24 11:04 Dose: 750 mg Documented By: Tramadol HCl (Tramadol 50 Mg Tablet) 50 mg PO NOW ONE Stop: 07/06/24 11:00 Last Admin: 07/06/24 11:04 Dose: 50 mg Documented By: Vital Signs Vital signs: Vital Signs - 8 hr 07/06/24 10:05 Temperature 97.9 F Pulse Rate 87 Respiratory Rate 16 Blood Pressure 140/81 Pulse Oximetry 100 Oxygen Delivery Method Room Air MDM - Back Pain/Injury Lab Data Labs: Point of Care Testing Test Results Negative Urine Dip Bedside Urine Glucose Negative Bedside Urine Bilirubin - Negative Bedside Urine Ketone - Negative Urine Specific [place] 1.010 Bedside Urine Occult Blood - Negative Bedside Urine pH 6.0 Bedside Urine Protein - Negative Bedside Urine Urobilinogen - Negative Bedside Urine Nitrite - Negative Bedside Urine Leukocytes +/- 15 Esterase MDM Narrative Medical decision making narrative: 28-year-old female with previous lumbar surgery March 2024, recent weeks increasing low back pain without injury, no incontinence, afebrile, sirs screen negative. Well-healed paraspinal lumbar surgical scars. Able to ambulate in the room, stands easily, transitions from lying to sitting to standing easily. Advanced imaging not indicated at this time. Trial of tramadol, trial of Robaxin/methocarbamol muscle relaxant. First doses given in the emergency department, prescription sent to her pharmacy. Home with friend who can drive. Follow up with [facility], follow up referral for Neurosurgery as needed. Return precautions discussed. Discharge Plan Departure Patient Disposition: Home Clinical Impression: Strain of lumbar region, History of lumbar surgery Activity Restrictions/Additional Instructions: History of lumbar low back surgery March 2024, recent days increasing low back pain, able to ambulate. Well-healed scars. Unremarkable neurological exam, able to stand and move well. X-ray lumbar spine done 2 weeks ago, hardware intact at that time. No intercurrent re-injury. No fever on triage. Advanced spinal imaging not indicated at this time. You had been taking ibuprofen. Prior lack of response to cyclobenzaprine/Flexeril muscle relaxant. Trial of Robaxin/methocarbamol muscle relaxant. Trial of tramadol pain control medication. Continue taking your ibuprofen. Follow up with your regular providers at [facility], consider referral to Neurosurgery, if your previous neurosurgeon is no longer available, for further follow up. Return earlier to this/nearest emergency department for any change worsening symptoms or any concerns prior. Prescriptions: New tramadol 50 mg tablet 50 mg PO TID PRN (Reason: pain) Qty: 14 0RF methocarbamol 500 mg tablet 500 mg PO TID 7 Days Qty: 21 0RF No Action gabapentin 300 mg Capsule 300 mg PO BID topiramate 50 mg Tablet 50 mg PO BID acetaminophen 325 mg Tablet 650 mg PO Q6H PRN (Reason: Fever/Mild Pain (1-3)) Qty: 60 0RF polyethylene glycol 3350 17 gram Powder In Packet 17 gm PO DAILY PRN (Reason: Constipation) Qty: 30 0RF oxycodone 5 mg Tablet 5 mg PO Q3H PRN (Reason: Pain, Moderate (4-6)) Qty: 30 0RF phenazopyridine [Pyridium] 100 mg tablet 100 mg PO TID PRN (Reason: pain) Qty: 6 0RF Referrals: Elías Corado ARNP [Primary Care Provider] - Stand Alone Forms: Patient Portal/API/Survey
[2024-07-06] MEDS: TRAMADOL 50 MG TABLET PO (11:04)
[2024-07-06] MEDS: methocarbamoL 500 MG TABLET 750 MG PO (11:04)
== END 2024-07-06 11:35 | disposition home or self-care (01) ==
PROVIDERS: Emergency Provider Emergency Medicine; PCP Nurse Practitioner Family
DX: S39.012A Strain of muscle, fascia and tendon of lower back, initial encounter (principal); X58.XXXA Exposure to other specified factors, initial encounter; Z98.1 Arthrodesis status
CPT/HCPCS: 81003; 81025; 99283

== ENCOUNTER → 2024-08-02 10:37 | Outpatient (CLI) | payer OTHER, SELFPAY ==
[2024-03-02 16:00] VITALS: BMI 34.7
--- NOTE | 2024-08-02 | DI.MRI.S_ITS ---
PROCEDURE: MR LUMBAR SPINE WO CON INDICATIONS: low back pain, fusion TECHNIQUE: Noncontrast sagittal T1 spin echo and T2 fast echo, sagittal STIR, and T2 fast spin echo through the lumbar spine. In cases with scoliosis, additional coronal T2 fast spin echo may be performed. COMPARISON: No prior studies available for comparison. FINDINGS: Image quality: Excellent. Some images are limited by metallic susceptibility artifacts, motion artifacts. Alignment and Curvature: There is normal bony alignment. Bone Marrow: Marrow is of normal overall signal. No acute vertebral body compression fractures. Spinal Cord: Conus medullaris terminates at the L1 level. Visualized cord demonstrates normal signal and size. Postoperative changes status post L5-S1 fusion with pedicle screws and posterior fixation rods, intervertebral metallic cage. T12-L1: Normal appearance. L1-L2: Normal appearance. L2-L3: Normal appearance. L3-L4: Normal appearance. L4-L5: Mild high intensity zone in the posterior annulus at L4-5 which may be a cause of back pain otherwise the disc space is normal in height and signal intensity without disc protrusion or central stenosis. No neural foraminal narrowing. L5-S1: Postoperative changes without MR evidence of residual or recurrent central stenosis or neural foraminal narrowing. IMPRESSION: Mild high intensity zone in the posterior annulus at L 4-5 which may be a cause of back pain. Postoperative changes L5-S1. Dictated by: Juan Mims M.D. on 08/03/2024 at 8:22 Approved by: Juan Mims M.D. on 08/03/2024 at 8:40
== END ==
LOC: MRI 10:37
PROVIDERS: PCP Nurse Practitioner Family; Referring Provider Nurse Practitioner Family; Visit Provider Nurse Practitioner Family
DX: M54.50 Low back pain, unspecified (principal); Z98.1 Arthrodesis status
CPT/HCPCS: 72148

== ENCOUNTER 2025-01-06 12:56 | Emergency (ER) | payer OTHER, SELFPAY ==
[2024-03-02 16:00] VITALS: BMI 34.7
[2025-01-06 13:05] VITALS: BP 130/77; PULSE 86; RESP 20; TEMP 36.5; O2SAT 98; BMI 30.4
--- NOTE | 2025-01-06 14:04 | ED_ITS ---
<Statement entered by Edmundo Dunaway, DO - 01/06/25 18:02> Co-sign statement: I was available for consultation during this patient's emergency department visit. This chart is being signed by myself for administrative purposes only. I do not have direct contact with this patient during this visit. They were seen independently by the APC. HPI - Back Pain/Injury General Chief Complaint: Back Pain/Injury Stated Complaint: back pain worsening Time Seen by Provider: 01/06/25 14:03 Source: patient History of Present Illness HPI Narrative: Ms. Gleason is a very pleasant 29-year-old female, active duty [place], with a past medical history of lumbar fusion by Dr. Hedrick in March of 2024 who presents to the emergency department for acute on chronic left-sided low back pain. Patient states her pain started yesterday while she was at physical therapy. They applied heat to her low back and then had her do stretches and states that pain started then. She has now been experiencing left-sided low back pain radiating into the groin. She has not having any bowel or bladder incontinence, saddle anesthesia, difficulty walking, numbness tingling or weakness. She has not having any dysuria, hematuria, vaginal discharge or bleeding. She does have an IUD in place and is not concerned for . No fevers or chills. She does have a ride home. No other medical problems. Related Data Home Medications ?Medication ?Instructions ?Recorded ?Confirmed gabapentin 300 mg capsule 300 mg PO BID 02/19/2402/18 topiramate 50 mg tablet 50 mg PO BID 03/03/24 Previous Rx's ?Medication ?Instructions ?Recorded acetaminophen 325 mg tablet 650 mg (2 x 325 mg) PO Q6H PRN 03/03/24 Fever/Mild Pain (1-3) #60 tabs oxycodone 5 mg tablet 5 mg PO Q3H PRN Pain, [place] te 03/03/24 (4-6) #30 tabs polyethylene glycol 3350 17 gram 17 gm PO DAILY PRN Co nstipation 03/03/24 oral powder packet #30 ea phenazopyridine 100 mg tablet 100 mg PO TID PRN pain 6 doses #6 06/01/24 (Pyridium) tabs tramadol 50 mg tablet 50 mg PO TID PRN pain #14 ta bs 07/06/24 lidocaine 5 % topical patch 1 patch topical DAILY #30 ea 01/06/25 (Lidoderm) methocarbamol 1,000 mg tablet 1,000 mg PO BEDTIME PRN spasms 10 01/06/25 days #10 tabs prednisone 20 mg tablet 40 mg (2 x 20 mg) PO DAILY 4 days 01/06/25 #8 tabs Allergies Allergy/AdvReac Type Severity Reaction Status Date / Time otf Allergy Severe Mouth Verified 12/02/24 10:00 swelling, hives peach Allergy Severe Mouth Verified 12/02/24 10:00 swelling, hives shellfish derived Allergy Severe Throat Verified 12/02/24 10:00 swelling Review of Systems Review of Systems ROS Unobtainable: All systems reviewed & are unremarkable except as noted in HPI and below Patient History Medical History History of COVID-19 HTN (hypertension) Migraine Lumbar pars defect Low back pain Surgical History No history of previous surgery Social History household members: friend(s) alcohol intake: current alcohol intake frequency: holidays/special occasions only Exam Narrative Exam Narrative: GENERAL: 29 year old female patient appears stated age. Well- developed patient, in no acute distress. HEAD: Atraumatic. Normocephalic. EYES: No scleral icterus. No injection or drainage. NECK: Trachea midline. Cervical ROM intact. CARDIOVASCULAR: Regular rate and rhythm. RESPIRATORY: ?Nonlabored respirations. ?Speaking in clear, full sentences. ?Clear to auscultation. Breath sounds equal bilaterally. No wheezes, rales, or rhonchi. ? EXTREMITIES: No LE edema BACK: Nontender without deformity or crepitance. Well-healed lumbar surgical scars. NEURO: AOx3. ?Clear speech. ?Moves all 4 extremities appropriately. Sensation intact to light touch in bilateral lower extremities. Ambulatory. SKIN: No rash or erythema of visible areas Initial Vital Signs Initial Vital Signs: Vital Signs Temperature 97.7 F 01/06/25 13:05 Pulse Rate 86 01/06/25 13:05 Respiratory Rate 20 01/06/25 13:05 Blood Pressure 130/77 01/06/25 13:05 Pulse Oximetry 98 01/06/25 13:05 Oxygen Delivery Method Room Air 01/06/25 13:05 Course Orders Ordered: Discontinued Medications Hydrocodone Bitart/Acetaminophen (Hydrocodone/Acet 5/325 Tablet) 1 tab PO NOW ONE Stop: 01/06/25 14:18 Last Admin: 01/06/25 14:32 Dose: 1 tab Documented By: KJ Ketorolac Tromethamine (Ketorolac 30 Mg/Ml Vial) 30 mg IM NOW ONE Stop: 01/06/25 14:18 Last Admin: 01/06/25 14:31 Dose: 30 mg Documented By: KJ Lidocaine (Lidocaine 5% Patch) 1 each TOP NOW ONE Stop: 01/06/25 14:18 Last Admin: 01/06/25 14:34 Dose: 1 each Documented By: KJ Prednisone (Prednisone 20 Mg Tablet) 40 mg PO NOW ONE Stop: 01/06/25 14:19 Last Admin: 01/06/25 14:31 Dose: 40 mg Documented By: KJ Vital Signs Vital signs: Vital Signs - 8 hr 01/06/25 13:05 Temperature 97.7 F Pulse Rate 86 Respiratory Rate 20 Blood Pressure 130/77 Pulse Oximetry 98 Oxygen Delivery Method Room Air MDM - Back Pain/Injury Medical Records Attestation: I reviewed the patient's medical records. [facility] Narrative Medical decision making narrative: 29-year-old female, active duty [place], with a past medical history of lumbar fusion by Dr. Hedrick in March of 2024 who presents to the emergency department for acute on chronic left-sided low back pain. Differential diagnosis includes but is not limited to lumbar strain, lumbar radiculopathy, acute on chronic pain, etc. On exam patient is in no acute distress, nontoxic-appearing, all vital signs within normal limits. She is ambulatory. No saddle anesthesia, bowel or bladder incontinence, urinary symptoms, fevers. No direct trauma to the back or fall. Symptoms began due to heat therapy and stretching during physical therapy. She is neurovascularly intact. History is consistent with lumbar strain, she is experiencing some left-sided radicular symptoms into the thigh. We will treat with Toradol, prednisone, [place], Lidoderm in the ED, recommended patient use ibuprofen, acetaminophen at home in addition to Lidoderm, methocarbamol, and complete 4 additional days of prednisone. Discussed supportive care such as gentle stretching, ice and heat therapy, avoid exacerbating movements. No indication for imaging at this time, no signs or symptoms concerning for cauda equina at this time. Patient's symptoms improved, eagerly requesting discharge home. She is ambulatory and stable for discharge at this time, ER return precautions discussed. Discharge Plan Departure Patient Disposition: Home Clinical Impression: Acute left lumbar radiculopathy Strain of lumbar region Qualifiers: Encounter type: initial encounter Qualified Code(s): S39.012A - Strain of muscle, fascia and tendon of lower back, initial encounter Instructions: DI for Low Back Pain, DI for Muscle Strain Activity Restrictions/Additional Instructions: Dear Victorino, Thank you for coming to the emergency department. I am sorry that you are experiencing worsening of your low back pain. I suspect that you may have sprained your lumbar muscles during physical therapy yesterday. You have been prescribed steroids to take to help reduce inflammation, muscle relaxer to take at night to help with sleep and spasms, topical numbing patches, and I would also like you to use ibuprofen, Tylenol. It is important to avoid bed rest but also avoid strenuous activity such as lifting. Using ice and or heat on the low back can be helpful please follow up with your primary care doctor and let them know that you were seen in the emergency department. Please take Ibuprofen (Motrin/Advil) or Acetaminophen (Tylenol) for pain. These are available over the counter. You may take Ibuprofen 600 mg every 8 hours with food for pain. You may also take Acetaminophen 650 mg every 4-6 hours for pain. Do not exceed 3000 mg of Tylenol a day as this can cause liver damage. Do not drink alcohol with either of these medications. Please be aware that narcotics and muscle relaxers can make you drowsy, you can not drive or drink alcohol while taking these medications. Please follow up with your primary care doctor within the next 2-3 days for ER follow-up. (If you do not have a PCP you can call [phone]. ?to schedule an appointment with an [facility] Primary Care Provider) IF YOU DEVELOP ANY NEW OR WORSENING SYMPTOMS, RETURN TO THE ER! Please read the attached instructions, they highlight more specific treatments and interventions for you at home. Thank you for letting me participate in your care, Annette Phelan PA-C Prescriptions: New prednisone 20 mg tablet 40 mg PO DAILY 4 Days Qty: 8 0RF lidocaine [Lidoderm] 5 % adhesive patch,medicated 1 patch topical DAILY Qty: 30 0RF Rx Instructions: leave on most painful area for up to 12 hrs methocarbamol 1,000 mg tablet 1,000 mg PO BEDTIME PRN (Reason: spasms) 10 Days Qty: 10 0RF No Action tramadol 50 mg tablet 50 mg PO TID PRN (Reason: pain) Qty: 14 0RF gabapentin 300 mg Capsule 300 mg PO BID topiramate 50 mg Tablet 50 mg PO BID acetaminophen 325 mg Tablet 650 mg PO Q6H PRN (Reason: Fever/Mild Pain (1-3)) Qty: 60 0RF polyethylene glycol 3350 17 gram Powder In Packet 17 gm PO DAILY PRN (Reason: Constipation) Qty: 30 0RF oxycodone 5 mg Tablet 5 mg PO Q3H PRN (Reason: Pain, Moderate (4-6)) Qty: 30 0RF phenazopyridine [Pyridium] 100 mg tablet 100 mg PO TID PRN (Reason: pain) Qty: 6 0RF Referrals: Elías Corado ARNP [Primary Care Provider, Nursing] Stand Alone Forms: Patient Portal/API
[2025-01-06] MEDS: KETOROLAC 30 MG/ML VIAL IM (14:31)
[2025-01-06] MEDS: LIDOCAINE 5% PATCH 1 EACH TOP (14:34)
[2025-01-06 15:23] VITALS: BP 125/62; PULSE 78; RESP 18; O2SAT 100
== END 2025-01-06 15:12 | disposition home or self-care (01) ==
PROVIDERS: Emergency Provider Physician Assistant; PCP Nurse Practitioner Family
DX: M54.16 Radiculopathy, lumbar region (principal); S39.012A Strain of muscle, fascia and tendon of lower back, initial encounter; Z97.5 Presence of (intrauterine) contraceptive device
CPT/HCPCS: 96372; 99283; J1885

== ENCOUNTER 2025-03-05 23:21 | Emergency (ER) | payer OTHER, SELFPAY ==
[2024-03-02 16:00] VITALS: BMI 34.7
--- NOTE | 2025-03-05 23:31 | DI.RAD.S_ITS ---
PROCEDURE: XR FOOT LT MIN 3V INDICATIONS: Left foot/ankle pain, lateral foot, fall down stair TECHNIQUE: 3 views of the foot were acquired. COMPARISON: None. FINDINGS: Bones: No fractures or dislocations. No suspicious bony lesions. Soft tissues: No tibiotalar joint effusion. Achilles tendon appears normal. IMPRESSION: No acute bony abnormality. Dictated by: Kelsey Mccarthy M.D. on 03/06/2025 at 0:13 Approved by: Kelsey Mccarthy M.D. on 03/06/2025 at 0:14
--- NOTE | 2025-03-05 23:31 | DI.RAD.S_ITS ---
PROCEDURE: XR ANKLE LT MIN 3V INDICATIONS: Left foot/ankle pain, lateral foot, fall down stair TECHNIQUE: 3 views of the ankle were acquired. COMPARISON: None. FINDINGS: Bones: No fractures or dislocations. Ankle mortise is normally aligned. No suspicious bony lesions. Soft tissues: No tibiotalar joint effusion. Achilles tendon appears normal. IMPRESSION: No acute bony abnormality or significant effusion. Dictated by: Kelsey Mccarthy M.D. on 03/06/2025 at 0:12 Approved by: Kelsey Mccarthy M.D. on 03/06/2025 at 0:13
--- NOTE | 2025-03-05 23:32 | ED.EXTPRO ---
HPI - Extremity Problem General Chief complaint: Extremity Injury, Lower Stated complaint: Fall, LT ankle pain Time Seen by Provider: 03/05/25 23:29 Source: patient, RN notes reviewed and old records reviewed Mode of arrival: Ambulatory Limitations: no limitations History of Present Illness HPI Narrative: 29-year-old female with a history of low back pain who had lumbar fusion last year with no other reported medical issues. Patient states she was walking down steps slipped on the last step or 2 and rolled her ankle. She has been able to ambulate but has pain she describes it over the dorsum of the lateral portion of the foot. Patient denies any numbness tingling or weakness otherwise. She denies any other injuries. She states no daily medications. No known drug allergies. No tobacco, alcohol or recreational drugs. Related Data Home Medications ?Medication ?Instructions ?Recorded ?Confirmed gabapentin 300 mg capsule 300 mg PO BID 02/19/24 02/19/24 topiramate 50 mg tablet 50 mg PO BID 03/03/24 03/03/24 Previous Rx's ?Medication ?Instructions ?Recorded acetaminophen 325 mg tablet 650 mg (2 x 325 mg) PO Q6H PRN 03/03/24 Fever/Mild Pain (1-3) #60 tabs oxycodone 5 mg tablet 5 mg PO Q3H PRN Pain, Moderate 03/03/24 (4-6) #30 tabs polyethylene glycol 3350 17 gram 17 gm PO DAILY PRN Constipation 03/03/24 oral powder packet #30 ea phenazopyridine 100 mg tablet 100 mg PO TID PRN pain 6 doses #6 06/01/24 (Pyridium) tabs tramadol 50 mg tablet 50 mg PO TID PRN pain #14 tabs 07/06/24 lidocaine 5 % topical patch 1 patch topical DAILY #30 ea 01/06/25 (Lidoderm) Allergies Allergy/AdvReac Type Severity Reaction Status Date / Time otf Allergy Severe Mouth Verified 03/05/25 23:34 swelling, hives peach Allergy Severe Mouth Verified 03/05/25 23:34 swelling, hives shellfish derived Allergy Severe Throat Verified 03/05/25 23:34 swelling Review of Systems Review of Systems ROS Unobtainable: All systems reviewed & are unremarkable except as noted in HPI and below Patient History Medical History History of COVID-19 HTN (hypertension) Migraine Lumbar pars defect Low back pain Surgical History No history of previous surgery Social History household members: friend(s) Smoking Status: Never smoker alcohol intake: current alcohol intake frequency: holidays/special occasions only Exam Narrative Exam Narrative: GENERAL: Alert and oriented x three, Female in mild distress HEENT: Head normocephalic, atraumatic, EOMI, pupils reactive, face symmetric, moist mucous membranes NECK: Supple, full range of motion EXTREMITIES: Normal range of motion, no clubbing or edema. Neurovascularly intact. no bony tenderness of the left knee, tib-fib, nontender over the mediolateral malleoli. Patient has some mild tenderness over the dorsum of the foot in the to 3 for metatarsal region. No distinct bony tenderness. Negative tenderness over the calcaneus. No tenderness over the toes. No joint laxity. Patient has good range of motion. 2+ dorsalis pedis. Normal sensation throughout. NEUROLOGICAL: Cranial nerves II through XII grossly intact. Moving all extremities SKIN: Warm, dry, no petechiae, no rashes or lesions. Initial Vital Signs Initial Vital Signs: Vital Signs Temperature 98.1 F 03/05/25 23:34 Pulse Rate 89 03/05/25 23:34 Respiratory Rate 16 03/05/25 23:34 Blood Pressure 133/76 03/05/25 23:34 Pulse Oximetry 99 03/05/25 23:34 Oxygen Delivery Method Room Air 03/05/25 23:34 Course Orders Ordered: ED Orders 03/05/25 23:31 XR ankle LT min 3V Stat XR foot LT min 3V Stat Vital Signs Vital signs: Vital Signs - 8 hr 03/05/25 23:34 03/05/25 23:58 03/06/25 00:00 Temperature 98.1 F Pulse Rate 89 76 78 Respiratory Rate 16 Blood Pressure 133/76 Pulse Oximetry 99 100 99 Oxygen Delivery Method Room Air 03/06/25 00:30 Temperature Pulse Rate 90 Respiratory Rate 18 Blood Pressure 134/78 Pulse Oximetry 100 Oxygen Delivery Method MDM - Extremity (Nontraumatic) MDM Narrative Medical decision making narrative: Ankle x-ray, no acute bony abnormality or significant effusion Foot x-ray, acute bony abnormality. 29-year-old female who rolled her ankle falling down 1 or 2 steps on some stairs. She is able to weightbear. X-ray imaging shows no acute change. Discussed with the patient we will set up with Gama wrap and crutches, weightbear as tolerated discussed return precautions. All questions answered. Discharge Plan Departure Patient Disposition: Home Clinical Impression: Ankle sprain and strain Instructions: DI for Ankle Sprain Activity Restrictions/Additional Instructions: Follow up in 7-10 days if you are having persistent symptoms for repeat evaluation and possibly repeat imaging. You can take acetaminophen and/or ibuprofen as needed for pain. Splint Care: Keep splint clean and dry. Elevated affected body part to decrease swelling. OK to use ice pack on the affected body part. Use for 15-20 minutes each time, for 5-6x per day. If you develop worsening pain, numbness, tingling, discoloration of the affected body part, loosen the splint by loosening the GAMA wrap, and either see your doctor for an urgent re-assessment, or return to the Emergency Department. Return to the Emergency Department for any new or worsening symptoms. Prescriptions: No Action tramadol 50 mg tablet 50 mg PO TID PRN (Reason: pain) Qty: 14 0RF gabapentin 300 mg Capsule 300 mg PO BID topiramate 50 mg Tablet 50 mg PO BID acetaminophen 325 mg Tablet 650 mg PO Q6H PRN (Reason: Fever/Mild Pain (1-3)) Qty: 60 0RF polyethylene glycol 3350 17 gram Powder In Packet 17 gm PO DAILY PRN (Reason: Constipation) Qty: 30 0RF oxycodone 5 mg Tablet 5 mg PO Q3H PRN (Reason: Pain, Moderate (4-6)) Qty: 30 0RF phenazopyridine [Pyridium] 100 mg tablet 100 mg PO TID PRN (Reason: pain) Qty: 6 0RF lidocaine [Lidoderm] 5 % adhesive patch,medicated 1 patch topical DAILY Qty: 30 0RF Rx Instructions: leave on most painful area for up to 12 hrs Referrals: Elías Corado ARNP [Primary Care Provider, Nursing] Stand Alone Forms: Patient Portal/API
[2025-03-05 23:34] VITALS: BP 133/76; PULSE 89; RESP 16; TEMP 36.7; O2SAT 99; BMI 29.2
[2025-03-05 23:58] VITALS: PULSE 76; O2SAT 100
[2025-03-06] VITALS: PULSE 78; O2SAT 99
[2025-03-06 00:30] VITALS: BP 134/78; PULSE 90; RESP 18; O2SAT 100
--- NOTE | 2025-03-06 00:58 | PC.NURSE ---
ankle lisa wrapped and crutches given with crutch training
== END 2025-03-06 01:02 | disposition home or self-care (01) ==
PROVIDERS: Emergency Provider Emergency Medicine; PCP Nurse Practitioner Family
DX: S93.402A Sprain of unspecified ligament of left ankle, initial encounter (principal); X50.1XXA Overexertion from prolonged static or awkward postures, initial encounter
CPT/HCPCS: 73610; 73630; 99282; 99283